=== PATIENT | female | born 1995 | race Caucasian/White ===

== ENCOUNTER 2018-02-07 23:02 | Emergency (ER) | payer BC ==
[2018-02-08 00:10] VITALS: RESP 18
--- NOTE | 2018-02-08 02:08 | ED ---
General Adult HPI - General Chief complaint: Psychiatric Symptoms Stated complaint: Petition Time Seen by Provider: 02/08/18 00:05 Source: patient, RN notes reviewed Mode of arrival: ambulatory Limitations: no limitations - History of Present Illness Initial comments: This is a 22-year-old female with past medical history significant for anxiety. Patient comes into the emergency department today under a court order. Parents petitioned her clinic records petitioned to be seen and evaluated. Parents were upset that the patient ran away from home however the patient states she just left because she was sick of being at home and being sheltered. Patient also states there's always arguing yelling and swearing at home from her father and she is having a difficult time dealing with that because of her anxiety. Patient states she does not want to go back home she is currently living at a gentleman sows who is 53 she states there is no relationship between the mother then she has able to have a room in the house. Patient states she does not use any alcohol or any drugs. Patient states she is not sexually active. Patient states she's never been allowed to date or even text boys. she just wants to get out and enjoy some of her life. - Related Data Allergies Allergy/AdvReac Type Severity Reaction Status Date / Time gluten Allergy Nausea & Verified 02/08/18 00:11 Vomiting grape Allergy Rash/Hives Verified 02/08/18 00:11 Milk Containing Products Allergy Nausea & Verified 02/08/18 00:11 [Dairy] Vomiting wheat Allergy Nausea & Verified 02/08/18 00:11 Vomiting Review of Systems ROS Statement: Those systems with pertinent positive or pertinent negative responses have been documented in the HPI. ROS Other: All systems not noted in ROS Statement are negative. Past Medical History Past Medical History: No Reported History History of Any Multi-Drug Resistant Organisms: None Reported Past Surgical History: No Surgical Hx Reported Past Psychological History: Anxiety Smoking Status: Never smoker Past Alcohol Use History: None Reported Past Drug Use History: None Reported General Exam - General Exam Comments Initial Comments: GENERAL: Patient is well-developed and well-nourished. Patient is nontoxic and well- hydrated and is in mild distress. ENT: Neck is soft and supple. No significant lymphadenopathy is noted. Oropharynx is clear. Moist mucous membranes. Neck has full range of motion without eliciting any pain. EYES: The sclera were anicteric and conjunctiva were pink and moist. Extraocular movements were intact and pupils were equal round and reactive to light. Eyelids were unremarkable. PULMONARY: Unlabored respirations. Good breath sounds bilaterally. No audible rales rhonchi or wheezing was noted. CARDIOVASCULAR: There is a regular rate and rhythm without any murmurs gallops or rubs. ABDOMEN: Soft and nontender with normal bowel sounds. No palpable organomegaly was noted. There is no palpable pulsatile mass. SKIN: Skin is clear with no lesions or rashes and otherwise unremarkable. NEUROLOGIC: Patient is alert and oriented x3. Cranial nerves II through XII are grossly intact. Motor and sensory are also intact. Normal speech, volume and content. Symmetrical smile. MUSCULOSKELETAL: Normal extremities with adequate strength and full range of motion. LYMPHATICS: No significant lymphadenopathy is noted PSYCHIATRIC: Normal psychiatric evaluation. Denies any suicidal homicidal ideations. Limitations: no limitations Course Vital Signs 02/08/18 00:06 Temperature 98.7 F Pulse Rate 92 Respiratory 18 Rate Blood Pressure 107/65 O2 Sat by Pulse 99 Oximetry Medical Decision Making - Medical Decision Making EPS contacted the psychiatrist and agree that the patient could be discharged home. - Lab Data Lab Results 02/08/18 Range/Units 02:15 Urine Opiates Screen Not Detected (NotDetected) Ur Oxycodone Screen Not Detected (NotDetected) Urine Methadone Screen Not Detected (NotDetected) Ur Propoxyphene Screen Not Detected (NotDetected) Ur Barbiturates Screen Not Detected (NotDetected) U Tricyclic Antidepress Not Detected (NotDetected) Ur Phencyclidine Scrn Not Detected (NotDetected) Ur Amphetamines Screen Not Detected (NotDetected) U Methamphetamines Scrn Not Detected (NotDetected) U Benzodiazepines Scrn Detected H (NotDetected) Urine Cocaine Screen Not Detected (NotDetected) U Marijuana (THC) Screen Not Detected (NotDetected) Disposition Clinical Impression: Evaluation by psychiatric service required Disposition: HOME SELF-CARE Condition: Good Instructions: Generalized Anxiety Disorder (ED) Is patient prescribed a controlled substance at d/c from ED?: No Referrals: Alfonso Marcelo MD [Primary Care Provider] - 1-2 days Time of Disposition: 05:03
[2018-02-08 03:22] LABS: Amphetamine Screen,Urine Not Detected (NotDetected); Barbiturate Screen,Urine Not Detected (NotDetected); Benzodiazepines Screen,Urine Detected (NotDetected); Cocaine Screen,Urine Not Detected (NotDetected); Methadone Screen, Urine Not Detected (NotDetected); Opiate Screen,Urine Not Detected (NotDetected); Oxycodone Screen, Urine Not Detected (NotDetected); Phencyclidine Screen,Urine Not Detected (NotDetected); Tricyclic Antidepressant,Urine Not Detected (NotDetected); Urn Cannabinoid Scrn Not Detected (NotDetected)
[2018-02-08 05:24] VITALS: BP 112/53; PULSE 98; TEMP 97.8
== END 2018-02-08 05:24 | disposition home or self-care (01) ==
LOC: EC 23:02
DX: Z04.6 Encounter for general psychiatric examination, requested by authority (principal); F41.9 Anxiety disorder, unspecified; Z91.018 Allergy to other foods; Z91.011 Allergy to milk products
CPT/HCPCS: 80306; 82075; 99283

== ENCOUNTER → 2018-06-17 | Outpatient (CLI) | payer BC ==
[2018-06-17 16:17] LABS: HGB 11.9 gm/dL (11.4-16.0); MCH 28.2 pg (25.0-35.0); MCHC 32.9 g/dL (31.0-37.0); MCV 85.7 fL (80.0-100.0); Mean Platelet Volume 8.4; Platelet Count 178 k/uL (150-450); RBC 4.21 m/uL (3.80-5.40); RDW 14.1 % (11.5-15.5); WBC 11.5 k/uL (3.8-10.6)
[2018-06-18 03:45] LABS: HIV 1 AB Non-Reactive (Non-Reactive); HIV AB P24 Non-Reactive (Non-Reactive); HIV P24 AG Non-Reactive (Non-Reactive)
[2018-06-20 04:40] LABS: Toxoplasma Antibody (IgG) <3.0 IU/mL (<7.2); Toxoplasma Antibody (IgM) <3.0 AU/mL (<8.0)
== END ==
LOC: LABWHC1 15:34
PROVIDERS: ATTEND Obstetrics & Gynecology
DX: O26.811 Pregnancy related exhaustion and fatigue, first trimester (principal); Z3A.00 Weeks of gestation of pregnancy not specified
CPT/HCPCS: 36415; 82565; 82947; 85027; 86762; 86777; 86778; 86780; 86850; 86900; 86901; 87340; 87390

== ENCOUNTER 2018-11-21 13:14 | Outpatient (CLI) | payer BC ==
[2018-11-21 14:36] VITALS: BP 123/60; PULSE 91; RESP 16; TEMP 98.5
--- NOTE | 2018-11-22 05:40 | P.MSEPDOC ---
Presenting Problems - Arrival Data Date of Arrival on Unit: 11/21/18 Time of Arrival on Unit: 13:30 Mode of Transport: Ambulatory - Complaint Comment: pt arrived c/o her stomach getting hard times once during the weekend pt denies any pain or cramping Medical History - Information : 1 Para: 0 Term: 0 : 0 Abortions: Spontaneous or Elective: 0 Number of Living Children: 0 - Gestational Age Gestational Age by ANEUDY (wks/days): 32 Weeks and 2 Days Review of Systems - Review of Systems Constitutional: No problems Breast: No problems ENT: No problems Cardiovascular: No problems Respiratory: No problems Gastrointestinal: No problems Genitourinary: No problems Musculoskeletal: No problems Neurological: No problems Skin: No problems Vital Signs - Temperature Temperature: 98.5 F Temperature Source: Oral - Pulse Right Brachial Pulse Rate: 91 Pulse Assessment Method: Automatic Cuff - Respirations Respiratory Rate: 16 Oxygen Delivery Method: Room Air - Blood Pressure Right Arm Blood Pressure: 123/60 Blood Pressure Mean: 81 Blood Pressure Source: Automatic Cuff Medical Screen Scoring (Pre) - Cervical Exam Dilation: 0 cm = 0 Membranes: Intact - Uterine Contractions Frequency: N/A Duration: N/A Intensity: N/A - Maternal Vital Signs Maternal Temperature: N/A Maternal Blood Pressure: N/A Signs of Preeclampsia: N/A Maternal Respirations: N/A - Pain Assessment Pain Scale Used: Numeric (1 - 10) Pain Intensity: 0 Pain Management Goal: 0 Pain Behavior: Vocalization - Maternal Trauma Maternal Trauma: N/A - Assessment Baseline FHR: 130 Heart Rate - NICHD Category: Category I (Normal) = 0 NST: Reactive Position: N/A Station: N/A - Total Score Total Score (Pre): 0 - Level of Risk Level of Risk: Low (0-5) Physician Notification (Post) - Physician Notified Physician Notified Date: 11/21/18 Physician Notified Time: 14:20 Spoke With: Dr. Gould New Order Received: Yes - Notification Comment Comment: reactive NST Cervix closed no contractions. May discharge to home undelivered Disposition - Disposition OB Disposition: Discharge to home Discharge Date: 11/21/18 Discharge Time: 14:20 I agree with the RN Medical Screening Exam: Yes Risk & Benefit of care provided described in d/c instruction: Yes Diagnosis: FALSE LABOR BEFORE 37 COMPLETED WEEKS OF GEST, THIRD TRI
== END 2018-11-21 14:20 | disposition home or self-care (01) ==
LOC: FBPOP 13:14
PROVIDERS: ATTEND Obstetrics & Gynecology
DX: O47.03 False labor before 37 completed weeks of gestation, third trimester (principal); Z3A.32 32 weeks gestation of pregnancy
CPT/HCPCS: 59025; 99213

== ENCOUNTER 2019-01-13 16:38 | Inpatient (IN) | payer BC ==
[2019-01-13] MEDS ORDERED: DINOPROSTONE 10 MG INSERT.ER VAGINAL ONE (16:40)
[2019-01-13 17:01] VITALS: BMI 29.7
[2019-01-13 17:18] LABS: Anisocytosis Slight; Basophils % (A) 0 %; Eosinophils # (A) 0.1 k/uL (0-0.7); Eosinophils % (A) 1 %; HCT 31.3 % (34.0-46.0); HGB 9.9 gm/dL (11.4-16.0); Hypochromasia Moderate; Lymphocytes # (A) 1.6 k/uL (1.0-4.8); Lymphocytes % (A) 12 %; MCH 23.2 pg (25.0-35.0); MCHC 31.5 g/dL (31.0-37.0); MCV 73.7 fL (80.0-100.0); Mean Platelet Volume 8.8; Microcytosis Slight; Monocytes % (A) 8 %; Neutrophils # (A) 10.1 k/uL (1.3-7.7); Neutrophils % (A) 77 %; Platelet Count 179 k/uL (150-450); Poikilocytosis Slight; RBC 4.25 m/uL (3.80-5.40); RDW 16.1 % (11.5-15.5); WBC 13.1 k/uL (3.8-10.6)
[2019-01-13 17:25] LABS: Appearance,Urine Clear (Clear); Bilirubin,Urine Negative (Negative); Blood,Urine Negative (Negative); Color,Urine Yellow; Glucose,Urine (UA) Negative (Negative); Ketones,Urine Negative (Negative); Leukocyte Esterase,Urine Negative (Negative); Nitrite,Urine Negative (Negative); Protein,Urine Negative (Negative); Urobilinogen,Urine <2.0 mg/dL (<2.0)
[2019-01-13 17:26] LABS: INR 0.8 (<1.2); Partial Thromboplastin Time 22.5 sec (22.0-30.0); Prothrombin Time 9.3 sec (9.0-12.0)
[2019-01-13 17:27] LABS: Albumin 3.5 g/dL (3.5-5.0); Bilirubin,Unconjugated 0.3 mg/dL (0.0-1.1); Total Bilirubin 0.2 mg/dL (0.2-1.3); Total Protein 6.4 g/dL (6.3-8.2); Uric Acid 3.2 mg/dL (3.7-7.4)
--- NOTE | 2019-01-13 17:50 | P.HPOB ---
History of Present Illness H&P Date: 01/13/19 Chief Complaint: Gestational hypertension This patient is a pleasant 23-year-old 1 para 0 female estimated date of confinement 01/14/2019 estimated gestational age 39-6/7 weeks gestation who presented my office today for routine visit was found to have elevated blood pressure 138/84 and 142/92. Patient did complain of a headache last evening but otherwise is feeling okay. Patient's cervix was not dilated. Patient's was complicated by a choroid plexus cyst for which she was sent to maternal- medicine and evaluation there was negative. They initially thought they saw 2 cm placental cyst however this repeat imaging was not found to be the case. Patient did see cardiology during the due to palpitations and was on a Holter monitor and had off heart echo done but these were all normal as well. Patient is now presenting for two-stage induction of labor for gestational hypertension. Review of Systems Ears, nose, mouth and throat: Reports headache Gastrointestinal: Reports heartburn Genitourinary: Reports Menstruation: Reports amenorrhea Past Medical History Past Medical History: No Reported History Additional Past Medical History / Comment(s): Palpitations with negative evaluation. History of Any Multi-Drug Resistant Organisms: None Reported Past Surgical History: No Surgical Hx Reported Past Anesthesia/Blood Transfusion Reactions: No Reported Reaction Past Psychological History: Anxiety Smoking Status: Never smoker Past Alcohol Use History: None Reported Past Drug Use History: None Reported - Past Family History Mother Family Medical History: No Reported History Medications and Allergies Home Medications Medication Instructions Recorded Confirmed Type Pnv,Calcium 72/Iron/Folic Acid 1 each PO DAILY 01/13/19 01/13/19 History [ Plus Tablet] Allergies Allergy/AdvReac Type Severity Reaction Status Date / Time grape Allergy Rash/Hives Verified 01/13/19 16:51 Exam Vital Signs Temp Pulse Resp Pulse Ox 01/13/19 16:49 96.8 F L 110 H 16 98 Intake and Output 01/13/19 01/13/19 01/13/19 06:59 14:59 22:59 Other: Weight 99.337 kg - OBG Physical Exam Abdomen: bowel sounds normal, no diffuse tenderness, no bruit present, no guarding noted, no hepatomegaly, no splenomegaly, no mass Vulva: both: normal Vagina: normal moisture, no discharge Cervix: no lesion (Cervix is closed and thick), no discharge Uterus: enlarged (Fundal height is 39 cm) Results blood work shows she is O positive, rubella nonimmune, RPR nonreactive, hepatitis B negative, HIV nonreactive, Glucola was 111, ultrasounds including level III ultrasound were normal. cardiac echo was normal. Result Diagrams: 01/13/19 17:00 Abnormal Lab Results - Last 24 Hours (Table) 01/13/19 01/13/19 Range/Units 17:00 17:00 WBC 13.1 H (3.8-10.6) k/uL Hgb 9.9 L (11.4-16.0) gm/dL Hct 31.3 L (34.0-46.0) % MCV 73.7 L (80.0-100.0) fL MCH 23.2 L (25.0-35.0) pg RDW 16.1 H (11.5-15.5) % Neutrophils # 10.1 H (1.3-7.7) k/uL Uric Acid 3.2 L (3.7-7.4) mg/dL Alkaline Phosphatase 207 H (38-126) U/L Assessment and Plan Assessment: This is a pleasant 23-year-old 1 para 0 female 39-6/7 weeks gestation admitted to labor and delivery for evaluation of gestational hypertension and preeclampsia labs are normal and blood pressures are improved here as compared to the office. Plan at this time is to proceed with two-stage induction of labor and anticipate vaginal delivery. (1) 40 weeks gestation of Current Visit: Yes Status: Acute Code(s): Z3A.40 - 40 WEEKS GESTATION OF SNOMED Code(s): 89988689 (2) Gestational hypertension Current Visit: Yes Status: Acute Code(s): O13.9 - GESTATIONAL HTN W/O SIGNIFICANT PROTEINURIA, UNSP TRIMESTER SNOMED Code(s): 688799510
[2019-01-13] MEDS: LACTATED RINGERS 1,000 ML IV SCH ×2 (19:20→20:50)
[2019-01-13] MEDS ORDERED: ACETAMINOPHEN TAB 500 MG TAB PO STA (19:37)
[2019-01-13] MEDS: BUTORPHANOL 1 MG/ML 1 ML VIAL IV PRN (23:45)
[2019-01-14] MEDS: BUTORPHANOL 1 MG/ML 1 ML VIAL IV PRN (02:16)
[2019-01-14] MEDS ORDERED: CARBOPROST TROMETHAMINE 250 MCG/ML 1 ML AMP IM PRN (05:05)
[2019-01-14] MEDS ORDERED: METHYLERGONOVINE 0.2 MG/ML 1 ML AMP IM PRN (05:05)
[2019-01-14] MEDS ORDERED: OXYTOCIN 30 UNITS/500 ML NS 30 UNIT in SALINE 1 500ML.BAG IV SCH (05:05)
[2019-01-14] MEDS ORDERED: OXYTOCIN 10 UNIT/ML 1 ML VIAL IM PRN (05:05)
[2019-01-14] MEDS ORDERED: LIDOCAINE 0.5% (PF) 5 MG/ML (50 ML SDV) SQ PRN (05:05)
[2019-01-14] MEDS ORDERED: TERBUTALINE 1 MG/ML VIAL SQ PRN (05:05)
[2019-01-14] MEDS: LACTATED RINGERS 1,000 ML IV SCH ×5 (05:53→20:49)
[2019-01-14] MEDS ORDERED: ROPIVACAINE 5MG/ML 20ML VIAL ONE (09:05)
[2019-01-14] MEDS ORDERED: SODIUM CHLORIDE 0.9% 100 ML BAG ONE (09:05)
[2019-01-14] MEDS ORDERED: fentaNYL (PF) 50 MCG/ML 5 ML AMP ONE (09:05)
[2019-01-14] MEDS ORDERED: ZOLPIDEM 5 MG TAB PO PRN (17:39)
[2019-01-14] MEDS ORDERED: diphenhydrAMINE 25 MG CAP PO PRN (17:39)
[2019-01-14] MEDS ORDERED: ACETAMINOPHEN TAB 325 MG TAB PO PRN (17:39)
[2019-01-14] MEDS ORDERED: HYDROCORTISONE 2.5% RECTAL CREAM 30 GM TUBE RECTAL PRN (17:39)
[2019-01-14] MEDS ORDERED: SIMETHICONE 80 MG CHEWABLE PO PRN (17:39)
[2019-01-14] MEDS ORDERED: diphenhydrAMINE 50 MG/ML 1 ML VIAL IVP PRN (17:39)
[2019-01-14] MEDS ORDERED: BISACODYL 10 MG SUPP RECTAL PRN (17:39)
[2019-01-14] MEDS ORDERED: BENZOCAINE/MENTHOL SPRAY 1 GM/SPRAY AEROSOL TOPICAL PRN (17:39)
[2019-01-14] MEDS ORDERED: LANOLIN CREAM 5 GM TUBE TOPICAL PRN (17:39)
[2019-01-14] MEDS ORDERED: WITCH HAZEL 1 EACH MED..PAD TOPICAL PRN (17:39)
--- NOTE | 2019-01-14 17:44 | P.PROBDLV ---
Vaginal Delivery Note - . Vaginal Delivery Note: Normal vaginal delivery viable male infant Apgars 7,8 at 1714 hrs. Please see dictated H&P for intimate details of this patient's admission. Brief summary this pleasant 23-year-old 1 para 0 female 39-6/7 weeks gestation admitted yesterday for induction secondary to gestational hypertension. Patient has Cervidil placed and this morning was 3-4 cm dilated. Patient is artificial rupture membranes for clear fluid. Labor is induced with Pitocin per protocol. Patient's labor progresses and she does get an epidural for pain control. Patient gets to complete pushes for approximately 15 minutes. Posterior perineum was supported we have controlled delivery of the 's head over the perineum. Mouth and nares are bulb suctioned. There is a nuchal cord which is easily reduced. With gentle downward traction we then have deliver the anterior and posterior shoulder and rest this infant's body. This is a vigorous viable male Apgars are 7 and 9 delivery time is 1714 hrs. After delivery of the 's late on the mother's abdomen. The cord is done pulsating is doubly clamped and then cut. The placenta is then spontaneously delivered intact. Inspection of perineum shows a second-degree laceration is repaired with 3-0 Vicryl usual fashion. Excellent reapproximation is noted. All counts correct 3. There are no complications. Infant and mother stable delivery room.
[2019-01-14] MEDS ORDERED: OXYTOCIN 20 UNITS/1000 ML NS 1,000 ML IV SCH (17:45)
[2019-01-14] MEDS: IBUPROFEN 600 MG TAB PO PRN (17:58)
[2019-01-14] MEDS: SENNOSIDES-DOCUSATE SODIUM 1 EACH TAB PO SCH (20:49)
[2019-01-14] MEDS ORDERED: MEASLES-MUMPS-RUBELLA VACC/PF 12,500 UNIT/0.5 ML VIAL SQ ONE (22:13)
--- NOTE | 2019-01-15 07:16 | P.PNOBGVD ---
Subjective - Subjective Patient reports: Reports appetite normal, Reports voiding normally, Reports pain well controlled, Reports ambulating normally : doing well Objective - Latest Vital Signs Latest vital signs: Vital Signs Temp Pulse Resp BP Pulse Ox 01/15/19 04:00 98.7 F 92 14 113/48 97 01/14/19 23:35 99.0 F 99 16 120/61 96 01/14/19 19:30 98.2 F 80 16 108/64 01/14/19 19:00 86 16 124/69 01/14/19 18:30 90 16 117/66 01/14/19 18:15 78 16 122/68 01/14/19 18:00 82 16 122/72 01/14/19 17:45 85 16 122/60 01/14/19 17:30 97.5 F L 100 17 125/61 Intake and Output 01/14/19 01/15/19 01/15/19 22:59 06:59 14:59 Output Total 150 Balance -150 Output: Estimated Blood Loss 150 Other: # Voids 2 - Exam Lungs: bilateral: normal Chest: Normal S1, Normal S2 Extremities: Present: normal Abdomen: Present: normal appearance, soft Uterus: Present: normal, firm Assessment and Plan Assessment: day #1. Patient is resting without complaints and would like to go home later today. Uterus is firm nontender and she is having normal lochia. Patient's felt be stable for discharge home follow up with me in 6 weeks. (1) 40 weeks gestation of Current Visit: Yes Status: Acute Code(s): Z3A.40 - 40 WEEKS GESTATION OF SNOMED Code(s): 07177212 (2) Gestational hypertension Current Visit: Yes Status: Acute Code(s): O13.9 - GESTATIONAL HTN W/O SIGNIFICANT PROTEINURIA, UNSP TRIMESTER SNOMED Code(s): 841909446
--- NOTE | 2019-01-15 07:20 | P.DS ---
Providers Date of admission: 01/13/19 16:38 Expected date of discharge: 01/15/19 Attending physician: David Gould Primary care physician: Trent Gonzalez - Discharge Diagnosis(es) (1) 40 weeks gestation of Current Visit: Yes Status: Acute (2) Gestational hypertension Current Visit: Yes Status: Acute Hospital Course: Please see dictated H&P for intimate details of this patient's admission. Brief summary is a pleasant 23-year-old 1 para 0 female 40 weeks gestation admitted to labor and delivery for two-stage induction of labor secondary to gestational hypertension. Patient was on have a vaginal delivery viable male . Please see dictated delivery note. day #1 patient without complaints wishes to go home. Patient's felt be stable for discharge home follow up with me in 6 weeks. Procedures: Two-stage induction of labor and normal vaginal delivery Patient Condition at Discharge: Good Plan - Discharge Summary Discharge Rx Participant: No New Discharge Prescriptions: New Ibuprofen [Motrin] 600 mg PO Q6HR PRN #40 tab PRN Reason: Mild Pain Or Fever >= 100.5 No Action Pnv,Calcium 72/Iron/Folic Acid [ Plus Tablet] 1 each PO DAILY Discharge Medication List Pnv,Calcium 72/Iron/Folic Acid [ Plus Tablet] 1 each PO DAILY 01/13/19 [History] Ibuprofen [Motrin] 600 mg PO Q6HR PRN #40 tab 01/15/19 [Rx] Follow up Appointment(s)/Referral(s): David Gould MD [STAFF PHYSICIAN] - 6 Weeks (Please call the office on Wednesday to schedule a check in approximately 6 weeks) Patient Instructions/Handouts: Vaginal Delivery (DC) Activity/Diet/Wound Care/Special Instructions: No intercourse or anything per vagina for 6 weeks. Please call if any fever, chills, excessive vaginal bleeding, and/or abdominal pain. Discharge Disposition: HOME SELF-CARE
[2019-01-15] MEDS: IBUPROFEN 600 MG TAB PO PRN ×2 (07:28→19:36)
[2019-01-15] MEDS: SENNOSIDES-DOCUSATE SODIUM 1 EACH TAB PO SCH ×2 (07:29→19:36)
[2019-01-15 08:29] VITALS: RESP 16
--- NOTE | 2019-01-16 06:40 | P.PNOBGVD ---
Subjective - Subjective Patient reports: Reports appetite normal, Reports voiding normally, Reports pain well controlled, Reports ambulating normally : doing well Objective - Latest Vital Signs Latest vital signs: Vital Signs Temp Pulse Resp BP 01/16/19 00:00 98.2 F 84 16 104/51 01/15/19 16:00 98 F 109 H 16 138/79 01/15/19 08:00 98.3 F 99 16 133/79 Intake and Output 01/15/19 01/15/19 01/16/19 14:59 22:59 06:59 Intake Total 100 Balance 100 Intake: Oral 100 Other: Voiding Method Toilet # Voids 1 1 1 - Exam Lungs: bilateral: normal Chest: Normal S1, Normal S2 Extremities: Present: normal Abdomen: Present: normal appearance, soft Uterus: Present: normal, firm Assessment and Plan Assessment: Patient's baby developed a low-grade temperature and therefore she decided to stay intact today. Patient herself is afebrile. Uterus is firm nontender and she is having normal lochia. Continue routine care and discharge home later today. (1) 40 weeks gestation of Current Visit: Yes Status: Acute Code(s): Z3A.40 - 40 WEEKS GESTATION OF SNOMED Code(s): 84921029 (2) Gestational hypertension Current Visit: Yes Status: Acute Code(s): O13.9 - GESTATIONAL HTN W/O SIGNIFICANT PROTEINURIA, UNSP TRIMESTER SNOMED Code(s): 000958485
[2019-01-16] MEDS: IBUPROFEN 600 MG TAB PO PRN (07:27)
[2019-01-16] MEDS: SENNOSIDES-DOCUSATE SODIUM 1 EACH TAB PO SCH (07:27)
[2019-01-16 15:36] VITALS: BP 119/68; PULSE 106; TEMP 98
== END 2019-01-16 16:35 | disposition home or self-care (01) | DRG 807 ==
LOC: 4FBP 16:38
PROVIDERS: ADMIT Obstetrics & Gynecology; ATTEND Obstetrics & Gynecology
PROC: 10E0XZZ Delivery of Products of Conception, External Approach (ICD-10-PCS; principal; 2019-01-14)
PROC: 0KQM0ZZ Repair Perineum Muscle, Open Approach (ICD-10-PCS; 2019-01-14)
PROC: 10907ZC Drainage of Amniotic Fluid, Therapeutic from Products of Conception, Via Natural or Artificial Opening (ICD-10-PCS; 2019-01-14)
PROC: 3E0P7VZ Introduction of Hormone into Female Reproductive, Via Natural or Artificial Opening (ICD-10-PCS; 2019-01-14)
PROC: 3E033VJ Introduction of Other Hormone into Peripheral Vein, Percutaneous Approach (ICD-10-PCS; 2019-01-14)
PROC: 00HU33Z Insertion of Infusion Device into Spinal Canal, Percutaneous Approach (ICD-10-PCS; 2019-01-14)
PROC: 3E0R3BZ Introduction of Anesthetic Agent into Spinal Canal, Percutaneous Approach (ICD-10-PCS; 2019-01-14)
DX: O13.4 Gestational [pregnancy-induced] hypertension without significant proteinuria, complicating childbirth (principal); Z37.0 Single live birth; O99.344 Other mental disorders complicating childbirth; O69.81X0 Labor and delivery complicated by cord around neck, without compression, not applicable or unspecified; F41.9 Anxiety disorder, unspecified; O70.1 Second degree perineal laceration during delivery; O99.89 Other specified diseases and conditions complicating pregnancy, childbirth and the puerperium; Z3A.40 40 weeks gestation of pregnancy
CPT/HCPCS: 80076; 81003; 83615; 84550; 85025; 85610; 85730; 86850; 86900; 86901; 90707

== ENCOUNTER 2020-09-16 09:13 | Outpatient (CLI) | payer BC ==
[2020-09-16 10:44] VITALS: BP 119/62; PULSE 85; RESP 16; TEMP 97.3
--- NOTE | 2020-09-17 06:23 | P.MSEPDOC ---
Presenting Problems - Arrival Data Date of Arrival on Unit: 09/16/20 Time of Arrival on Unit: 09:30 Mode of Transport: Ambulatory - Complaint OB-Reason for Admission/Chief Complaint: Decreased Movement Comment: 28 weeks . decreased movement since last night Medical History - Information : 2 Para: 1 Term: 1 : 0 Abortions: Spontaneous or Elective: 0 Number of Living Children: 1 - Gestational Age Gestational Age by ANEUDY (wks/days): 28 Weeks and 3 Days Review of Systems - Review of Systems Constitutional: No problems Breast: No problems ENT: No problems Cardiovascular: No problems Respiratory: No problems Gastrointestinal: No problems Genitourinary: No problems Musculoskeletal: No problems Neurological: No problems Skin: No problems Vital Signs - Temperature Temperature: 97.3 F Temperature Source: Oral - Pulse Right Apical Pulse Rate: 85 Pulse Assessment Method: Automatic Cuff - Respirations Respiratory Rate: 16 Oxygen Delivery Method: Room Air O2 Sat by Pulse Oximetry: 99 - Blood Pressure Right Arm Blood Pressure: 119/62 Blood Pressure Mean: 81 Blood Pressure Source: Automatic Cuff Medical Screen Scoring (Pre) - Cervical Exam Dilation: Exam Deferred Effacement: Exam Deferred Membranes: Intact - Uterine Contractions Frequency: N/A Duration: N/A Intensity: N/A - Maternal Vital Signs Maternal Temperature: N/A Signs of Preeclampsia: N/A Maternal Respirations: N/A - Maternal Trauma Maternal Trauma: N/A - Assessment - Baby A Baseline FHR: 130 Heart Rate - NICHD Category: Category I (Normal) = 0 Position: N/A Station: N/A - Total Score - Baby A Total Score - Baby A: 0 - Total Score - Baby B Total Score - Baby B: 0 - Total Score - Baby C Total Score - Baby C: 0 - Level of Risk - Baby A Level of Risk - Baby A: Low (0-5) - Level of Risk - Baby B Level of Risk - Baby B: Low (0-5) - Level of Risk - Baby C Level of Risk - Baby C: Low (0-5) Physician Notification (Pre) - Physician Notified Physician Notified Date: 09/16/20 Physician Notified Time: 09:45 New Order Received: Yes (may discharge home if active nst and feeling baby) - Notification Comment Comment: reactive nst for 28 weeks. also feeling baby move. so at side. reassured with hearing fht's Disposition - Disposition OB Disposition: Discharge to home Discharge Date: 09/16/20 Discharge Time: 10:05 I agree with the RN Medical Screening Exam: Yes Case reviewed; plan agreed upon as documented in EMR&OBIX.: Yes Diagnosis: DECREASED MOVEMENTS, SECOND TRIMESTER, FETUS 1
== END 2020-09-16 10:05 | disposition home or self-care (01) ==
LOC: FBPOP 09:13
PROVIDERS: ATTEND Obstetrics & Gynecology
DX: O36.8121 Decreased fetal movements, second trimester, fetus 1 (principal); Z3A.28 28 weeks gestation of pregnancy
CPT/HCPCS: 59025; 99213

== ENCOUNTER 2020-10-07 13:40 | Outpatient (CLI) | payer BC, OTHER ==
[2020-10-07 14:49] VITALS: BP 126/71; PULSE 96; RESP 18; TEMP 97.5
--- NOTE | 2020-10-08 06:26 | P.MSEPDOC ---
Presenting Problems - Arrival Data Date of Arrival on Unit: 10/07/20 Time of Arrival on Unit: 13:40 Mode of Transport: Ambulatory - Complaint OB-Reason for Admission/Chief Complaint: Headache Comment: headache and some nausea yesterday, none at present. Medical History - Information : 2 Para: 1 Term: 1 : 0 Abortions: Spontaneous or Elective: 0 Number of Living Children: 1 - Gestational Age Gestational Age by ANEUDY (wks/days): 31 Weeks and 3 Days Review of Systems - Review of Systems Constitutional: No problems Breast: No problems ENT: No problems Cardiovascular: No problems Respiratory: No problems Gastrointestinal: No problems Genitourinary: No problems Musculoskeletal: No problems Neurological: No problems Skin: No problems Comment: headache/nausea yesterday, none at present. Vital Signs - Temperature Temperature: 97.5 F Temperature Source: Temporal Artery Scan - Pulse Right Pulse Oximetery Pulse Rate: 96 Pulse Assessment Method: Pulse Oximetry - Respirations Respiratory Rate: 18 Oxygen Delivery Method: Room Air O2 Sat by Pulse Oximetry: 98 - Blood Pressure Right Arm Blood Pressure: 126/71 Blood Pressure Mean: 89 Blood Pressure Source: Automatic Cuff Medical Screen Scoring (Pre) - Cervical Exam Dilation: Exam Deferred Effacement: Exam Deferred - Uterine Contractions Frequency: N/A Duration: N/A Intensity: N/A - Maternal Vital Signs Maternal Temperature: N/A Maternal Blood Pressure: N/A Signs of Preeclampsia: N/A Maternal Respirations: N/A - Maternal Trauma Maternal Trauma: N/A - Assessment - Baby A Baseline FHR: 130 Heart Rate - NICHD Category: Category I (Normal) = 0 NST: Reactive Position: N/A Station: N/A - Total Score - Baby A Total Score - Baby A: 0 - Total Score - Baby B Total Score - Baby B: 0 - Total Score - Baby C Total Score - Baby C: 0 - Level of Risk - Baby A Level of Risk - Baby A: Low (0-5) - Level of Risk - Baby B Level of Risk - Baby B: Low (0-5) - Level of Risk - Baby C Level of Risk - Baby C: Low (0-5) Physician Notification (Pre) - Physician Notified Physician Notified Date: 10/07/20 Physician Notified Time: 14:28 New Order Received: Yes Disposition - Disposition OB Disposition: Discharge to home Discharge Date: 10/07/20 Discharge Time: 14:40 I agree with the RN Medical Screening Exam: Yes Case reviewed; plan agreed upon as documented in EMR&OBIX.: Yes Diagnosis: HEADACHE, UNSPECIFIED (Pt presents with concern of CHAIDEZ and possible pre-eclampsia. CHAIDEZ is now gone. BP normal. No evidence of HTN/pre-eclampsia. Will f/u as scheduled and to return if continued concerns. No evidence of maternal/ compromise.)
== END 2020-10-07 14:40 | disposition home or self-care (01) ==
LOC: FBPOP 13:40
PROVIDERS: ATTEND Obstetrics & Gynecology
DX: O26.893 Other specified pregnancy related conditions, third trimester (principal); R51.9 Headache, unspecified; Z3A.31 31 weeks gestation of pregnancy
CPT/HCPCS: 59025; 99213

== ENCOUNTER 2020-11-28 05:36 | Inpatient (IN) | payer BC, OTHER ==
--- NOTE | 2020-11-27 08:02 | P.HPOB ---
History of Present Illness H&P Date: 11/27/20 Chief Complaint: Requested induction of labor This patient is a pleasant 24-year-old 2 para 1 female estimated date of confinement 12/05/2020 estimated gestational age 39-0/7 weeks who presents to labor and delivery for requested induction of labor due to maternal discomfort. Patient's care has been uncomplicated except for some mild anemia. She is now requesting induction. Review of Systems Genitourinary: Reports Menstruation: Reports amenorrhea Past Medical History Past Medical History: No Reported History Additional Past Medical History / Comment(s): Palpitations with negative evaluation. Previous term vaginal delivery History of Any Multi-Drug Resistant Organisms: None Reported Past Surgical History: No Surgical Hx Reported Past Anesthesia/Blood Transfusion Reactions: No Reported Reaction Smoking Status: Never smoker Past Alcohol Use History: None Reported Past Drug Use History: None Reported - Past Family History Mother Family Medical History: No Reported History Medications and Allergies Home Medications Medication Instructions Recorded Confirmed Type Pnv,Calcium 72/Iron/Folic Acid 1 each PO DAILY 01/13/19 10/07/20 History [ Plus Tablet] Allergies Allergy/AdvReac Type Severity Reaction Status Date / Time grape Allergy Rash/Hives Verified 10/07/20 14:36 Exam - OBG Physical Exam Abdomen: bowel sounds normal, no diffuse tenderness, no bruit present, no guarding noted, no hepatomegaly, no splenomegaly, no mass Vulva: both: normal Vagina: normal moisture, no discharge Cervix: no lesion (Cervix in the office is 2 cm soft -2 station.), no discharge Uterus: enlarged (Fundal height 38 cm) Results blood work shows she is O positive, rubella immune, RPR nonreactive, hepatitis B negative, Glucola was normal, group B strep was negative, ultrasounds have shown normal growth and anatomy. Assessment and Plan Assessment: This is a pleasant 24-year-old 2 para 1 female 39-0/7 weeks gestation who is admitted to labor and delivery for requested induction of labor. Plan is induction of labor and anticipate vaginal delivery. (1) 39 weeks gestation of Status: Acute Code(s): Z3A.39 - 39 WEEKS GESTATION OF SNOMED Code(s): 78939026 (2) Elective induction of labor planned Status: Acute Code(s): ZEF8349 - SNOMED Code(s): 674550820
[2020-11-28] MEDS ORDERED: LIDOCAINE 0.5% (PF) 5 MG/ML (50 ML SDV) SQ PRN (05:58)
[2020-11-28] MEDS ORDERED: METHYLERGONOVINE 0.2 MG/ML 1 ML AMP IM PRN (05:58)
[2020-11-28] MEDS ORDERED: CARBOPROST TROMETHAMINE 250 MCG/ML 1 ML AMP IM PRN (05:58)
[2020-11-28] MEDS ORDERED: TERBUTALINE 1 MG/ML VIAL SQ PRN (05:58)
[2020-11-28] MEDS ORDERED: OXYTOCIN 10 UNIT/ML 1 ML VIAL IM PRN (05:58)
[2020-11-28] MEDS ORDERED: OXYTOCIN 30 UNITS/500 ML NS 30 UNIT in SALINE 1 500ML.BAG IV SCH ×2 (05:58→17:44)
[2020-11-28] MEDS: LACTATED RINGERS 1,000 ML IV SCH ×3 (06:04→16:21)
[2020-11-28 06:20] LABS: Anisocytosis Slight; Basophils % (A) 0 %; Eosinophils # (A) 0.1 k/uL (0-0.7); Eosinophils % (A) 1 %; HCT 30.5 % (34.0-46.0); HGB 10.4 gm/dL (11.4-16.0); Hypochromasia Slight; Lymphocytes # (A) 1.5 k/uL (1.0-4.8); Lymphocytes % (A) 16 %; MCH 24.5 pg (25.0-35.0); MCHC 33.9 g/dL (31.0-37.0); MCV 72.2 fL (80.0-100.0); Mean Platelet Volume 9.4; Microcytosis Moderate; Monocytes # (A) 0.6 k/uL (0-1.0); Monocytes % (A) 7 %; Neutrophils % (A) 75 %; Platelet Count 138 k/uL (150-450); Poikilocytosis Slight; RBC 4.23 m/uL (3.80-5.40); RDW 16.5 % (11.5-15.5); WBC 9.4 k/uL (3.8-10.6)
[2020-11-28] MEDS ORDERED: fentaNYL (PF) 50 MCG/ML 5 ML AMP ONE (11:38)
[2020-11-28] MEDS ORDERED: ROPIVACAINE 5MG/ML 20ML VIAL ONE (11:38)
[2020-11-28] MEDS ORDERED: SODIUM CHLORIDE 0.9% 100 ML BAG ONE (11:38)
[2020-11-28] MEDS ORDERED: diphenhydrAMINE 50 MG/ML 1 ML VIAL IVP PRN (17:44)
[2020-11-28] MEDS ORDERED: HYDROCORTISONE 2.5% RECTAL CREAM 30 GM TUBE RECTAL PRN (17:44)
[2020-11-28] MEDS ORDERED: bisacodyL 10 MG SUPP RECTAL PRN (17:44)
[2020-11-28] MEDS ORDERED: diphenhydrAMINE 25 MG CAP PO PRN (17:44)
[2020-11-28] MEDS ORDERED: BENZOCAINE/MENTHOL SPRAY 1 GM/SPRAY AEROSOL TOPICAL PRN (17:44)
[2020-11-28] MEDS ORDERED: LANOLIN CREAM 5 GM TUBE TOPICAL PRN (17:44)
[2020-11-28] MEDS ORDERED: SIMETHICONE 80 MG CHEWABLE PO PRN (17:44)
[2020-11-28] MEDS ORDERED: ZOLPIDEM 5 MG TAB PO PRN (17:44)
[2020-11-28] MEDS ORDERED: ACETAMINOPHEN TAB 325 MG TAB PO PRN (17:44)
--- NOTE | 2020-11-28 17:47 | P.PROBDLV ---
Vaginal Delivery Note - . Vaginal Delivery Note: Normal vaginal delivery viable female Apgars 7 and 9 delivery time is 1710 hrs. Please see dictated H&P for intimate details of this patient's admission. In brief summary this is a pleasant 24-year-old 2 para 1 female 39 0/7 weeks gestation admitted to labor and delivery for requested induction of labor. Patient is admitted she is 2 cm dilated has artificial rupture membranes for clear fluid. Labor is induced with Pitocin per protocol. Labor progresses and she does get an epidural at 3 cm dilated. Patient continues to progress normally gets to complete. Patient pushes the head to the perineum the posterior perineum is supported. We have controlled delivery of the 's head over the perineum. Mouth and nares are bulb suctioned. There is a double nuchal cord which is doubly reduced. Patient continues to push uncontrollably a nd deliver the anterior and posterior shoulder and rest this 's body. This is a vigorous viable female infant Apgars are 7 and 9 delivery time is 1710 hrs. After delivery of the the umbilical cords allowed to quit pulsating is then doubly clamped and cut. It appears to be trivascular. The infant is late mother's abdomen. The placenta spontaneously delivered intact. Estimated blood loss is 200 mL. Inspection of perineum shows second-degree laceration is repaired with 3-0 Vicryl usual fashion excellent reapproximation is noted. Infant and mother are stable delivery room. There are no complications. All counts correct 3.
[2020-11-28] MEDS: IBUPROFEN 600 MG TAB PO PRN (18:13)
[2020-11-28] MEDS: SENNOSIDES-DOCUSATE SODIUM 1 EACH TAB PO SCH (18:14)
[2020-11-29] MEDS: IBUPROFEN 600 MG TAB PO PRN ×2 (04:46→13:25)
--- NOTE | 2020-11-29 06:39 | P.PNOBGVD ---
Subjective - Subjective Patient reports: Reports appetite normal, Reports voiding normally, Reports pain well controlled, Reports ambulating normally : doing well Objective - Latest Vital Signs Latest vital signs: Vital Signs Temp Pulse Resp BP 11/29/20 04:00 98.1 F 82 16 116/72 11/29/20 00:00 98.4 F 84 16 119/74 11/28/20 19:30 98.1 F 69 18 126/80 11/28/20 19:00 68 16 125/75 11/28/20 18:30 70 16 124/69 11/28/20 18:15 85 16 136/71 11/28/20 18:00 73 16 122/62 11/28/20 17:45 80 16 126/67 11/28/20 17:30 97.4 F L 77 16 121/58 Intake and Output 11/28/20 11/28/20 11/29/20 14:59 22:59 06:59 Output Total 300 150 Balance -300 -150 Output: Urine 300 Estimated Blood Loss 150 Other: # Voids 2 - Exam Lungs: bilateral: normal Chest: Normal S1, Normal S2 Extremities: Present: normal Abdomen: Present: normal appearance, soft Uterus: Present: normal, firm Assessment and Plan Assessment: Post day #1. Patient is resting without complaints and wishes to go home. Vital signs are stable and she is afebrile. Uterus is firm nontender and she is having normal lochia. My impression is a normal course. Anus to continue routine care discharge home later today. (1) 39 weeks gestation of Current Visit: No Status: Acute Code(s): Z3A.39 - 39 WEEKS GESTATION OF SNOMED Code(s): 74734756 (2) Elective induction of labor planned Current Visit: No Status: Acute Code(s): ODM6956 - SNOMED Code(s): 839633218
--- NOTE | 2020-11-29 06:44 | P.DS ---
Providers Date of admission: 11/28/20 05:36 Expected date of discharge: 11/29/20 Attending physician: David Gould Primary care physician: Trent Gonzalez - Discharge Diagnosis(es) (1) 39 weeks gestation of Current Visit: No Status: Acute (2) Elective induction of labor planned Current Visit: No Status: Acute Hospital Course: Please see dictated H&P for intimate details of this patient's admission. Brief summary this is a pleasant 24-year-old 2 para 1 female 39 weeks gestation admitted to labor and delivery for induction of labor. She is admitted she is uncomplicated induction of labor goes on have a vaginal delivery viable female infant. Please see dictated delivery note. day #1 patient without complaints she wishes to go home. She is felt to be stable for discharge home follow up with me in 6 weeks. Procedures: Induction of labor and normal vaginal delivery Patient Condition at Discharge: Good Plan - Discharge Summary New Discharge Prescriptions: New Ibuprofen [Motrin] 600 mg PO Q6H PRN #30 tab PRN Reason: Pain No Action Pnv,Calcium 72/Iron/Folic Acid [ Plus Tablet] 1 each PO DAILY Discharge Medication List Pnv,Calcium 72/Iron/Folic Acid [ Plus Tablet] 1 each PO DAILY 01/13/19 [History] Ibuprofen [Motrin] 600 mg PO Q6H PRN #30 tab 11/29/20 [Rx] Follow up Appointment(s)/Referral(s): David Gould MD [STAFF PHYSICIAN] - 01/16/21 11:30 am Patient Instructions/Handouts: Vaginal Delivery (DC) Activity/Diet/Wound Care/Special Instructions: No intercourse or anything per vagina for 6 weeks. Please call if any fever, chills, excessive vaginal bleeding, and/or abdominal pain. Discharge Disposition: HOME SELF-CARE
[2020-11-29] MEDS: SENNOSIDES-DOCUSATE SODIUM 1 EACH TAB PO SCH (08:01)
[2020-11-29 08:03] VITALS: BP 120/69
[2020-11-29 15:29] VITALS: PULSE 85; RESP 20; TEMP 98.4
== END 2020-11-29 18:45 | disposition home or self-care (01) | DRG 807 ==
LOC: 4FBP 05:36
PROVIDERS: ADMIT Obstetrics & Gynecology; ATTEND Obstetrics & Gynecology
PROC: 10E0XZZ Delivery of Products of Conception, External Approach (ICD-10-PCS; principal; 2020-11-28)
PROC: 0KQM0ZZ Repair Perineum Muscle, Open Approach (ICD-10-PCS; principal; 2020-11-28)
DX: O69.81X0 Labor and delivery complicated by cord around neck, without compression, not applicable or unspecified (principal); Z37.0 Single live birth; O70.1 Second degree perineal laceration during delivery; Z3A.39 39 weeks gestation of pregnancy
CPT/HCPCS: 85025; 86850; 86900; 86901

== ENCOUNTER → 2021-10-30 | Outpatient (CLI) | payer OTHER ==
[2021-10-30 23:26] LABS: HCG,Quantitative Serum <3.0 (0.0-6.0)
== END | disposition home or self-care (01) ==
LOC: LABWHC1 14:37
PROVIDERS: ATTEND Obstetrics & Gynecology
DX: Z13.29 Encounter for screening for other suspected endocrine disorder (principal); R53.81 Other malaise; R53.83 Other fatigue; N94.89 Other specified conditions associated with female genital organs and menstrual cycle
CPT/HCPCS: 36415; 84439; 84443; 84479; 84702

== ENCOUNTER → 2022-06-23 | Outpatient (CLI) | payer OTHER | END | disposition home or self-care (01) | LOC: LABWHC1 09:48 | PROVIDERS: ATTEND Obstetrics & Gynecology | DX: N94.89 Other specified conditions associated with female genital organs and menstrual cycle (principal) | CPT/HCPCS: 36415; 84702 ==

== ENCOUNTER 2023-01-25 06:00 | Emergency (ER) | payer OTHER ==
[2023-01-25 06:08] VITALS: RESP 18
[2023-01-25] MEDS ORDERED: SODIUM CHLORIDE 0.9% 1,000 ML IV STA (06:32)
[2023-01-25] MEDS ORDERED: KETOROLAC 15 MG/ML 1 ML VIAL IVP STA (06:32)
--- NOTE | 2023-01-25 06:37 | ED ---
Abdominal Pain HPI - General Chief Complaint: Abdominal Pain Stated Complaint: Abdominal Pain Time Seen by Provider: 01/25/23 06:14 Source: patient, RN notes reviewed Mode of arrival: ambulatory Limitations: no limitations - History of Present Illness Initial Comments: This is a 27-year-old female who presents to the emergency department for abdominal pain. States that this is in the mid to upper aspect of her abdomen. This started predominantly last night. However, 2 days ago, she did have some generalized cramping. Denies any nausea or vomiting. She has not a bowel movement since yesterday, because it hurts when she tries to bear down. Yin shilpi, she does not specifically feel like she is constipated. Denies any urinary symptoms. Also denies any nausea or vomiting. Denies any history of similar abdominal pain in the past. Denies any fevers, chills, sore throat, cough, dyspnea, chest pain, palpitations, nausea, vomiting, diarrhea, back pain, or headaches. MD Complaint: abdominal pain Onset/Timin -: days(s) Location: diffuse - Related Data Home Medications Medication Instructions Recorded Confirmed Vit No.180/Iron/Folic 1 each PO DAILY 01/13/19 11/28/20 [ Plus Tablet] Previous Rx's Medication Instructions Recorded Ibuprofen [Motrin] 600 mg PO Q6H PRN #30 tab 11/29/20 HYDROcodone/APAP 7.5-325MG [[place] 1 tab PO Q6HR PRN 3 Days #12 tab 01/25/23 7.5-325] Ketorolac [Toradol] 10 mg PO Q6HR PRN #12 tab 01/25/23 Allergies Allergy/AdvReac Type Severity Reaction Status Date / Time No Known Allergies Allergy Verified 01/25/23 06:08 Review of Systems ROS Statement: Those systems with pertinent positive or pertinent negative responses have been documented in the HPI. ROS Other: All systems not noted in ROS Statement are negative. Past Medical History Past Medical History: No Reported History Additional Past Medical History / Comment(s): Palpitations with negative evaluation. Previous term vaginal delivery, scoliosis History of Any Multi-Drug Resistant Organisms: None Reported Past Surgical History: No Surgical Hx Reported Past Anesthesia/Blood Transfusion Reactions: No Reported Reaction Past Psychological History: No Psychological Hx Reported Smoking Status: Never smoker Past Alcohol Use History: Occasional Past Drug Use History: None Reported - Past Family History Mother Family Medical History: No Reported History General Exam Limitations: no limitations General appearance: alert, in no apparent distress Head exam: Present: atraumatic, normocephalic, normal inspection Respiratory exam: Present: normal lung sounds bilaterally. Absent: respiratory distress, wheezes, rales, rhonchi, stridor Cardiovascular Exam: Present: regular rate, normal rhythm, normal heart sounds. Absent: systolic murmur, diastolic murmur, rubs, gallop, clicks GI/Abdominal exam: Present: soft, tenderness (periumbilical to epigastric), normal bowel sounds. Absent: distended Neurological exam: Present: alert, oriented X3, CN II-XII intact Psychiatric exam: Present: normal affect, normal mood Skin exam: Present: warm, dry, intact, normal color. Absent: rash Course Vital Signs 01/25/23 01/25/23 01/25/23 06:06 08:57 10:53 Temperature 99.1 F 97.6 F Pulse Rate 93 70 71 Respiratory 18 18 18 Rate Blood Pressure 129/87 117/68 118/73 O2 Sat by Pulse 96 98 97 Oximetry Medical Decision Making - Medical Decision Making This is a 27-year-old female who presents to the emergency department for abdominal pain. Was pt. sent in by a medical professional or institution? @ -No Did you speak to anyone other than the patient for history? @ -No Did you review nursing and triage notes? @ -Yes, and I agree, it is accurate with regards to the patient's symptoms. Were old charts reviewed? @ -No Differential Diagnosis? @ -Differential Abdominal Pain Women: Appendicitis, Cholecystitis, diverticulosis, ischemic bowel, pancreatitis, hepatitis, UTI, gastroenteritis, AAA, incarcerated hernia, bowel obstruction, constipation, inflammatory bowel, hepatitis, peptic ulcer disease, splenic infarction, perforated viscus, vulvitis, ovarian torsion, PID, kidney stone, placenta abruption, this is not meant to be an all-inclusive list EKG interpreted by me (3pts min.)? @ -Not obtained X-rays interpreted by me (1pt min.)? @ -Not obtained CT interpreted by me (1pt min.)? @ -Computed tomography scan of the abdomen and pelvis obtained. My interpret ation identifies free fluid in the pelvis. U/S interpreted by me (1pt. min.)? @ -Not interpreted by me What testing was considered but not performed? (CT, X-rays, U/S, labs)? Why? @ -None What meds were considered but not given? Why? @ -None Did you discuss the management of the patient with other professionals? @ -Yes, Dr. Morgan, [employer], who advised repeating the CBC, and said that the patient can be discharged home with pain medication and outpatient follow-up as long as her hemoglobin remained fairly stable. Did you reconcile home meds? @ -No Was smoking cessation discussed for >3mins.? @ -No Was critical care preformed (if so, how long)? @ -No Were there social determinants of health that impacted care today? How? (Homelessness, low income, unemployed, alcoholism, drug addiction, transportation, low edu. Level, literacy, decrease access to med. care, penitentiary, rehab)? @ -No Was there de-escalation of care discussed even if they declined? (Discuss DNR or withdrawal of care, Hospice)? @ -No What co-morbidities impacted this encounter? (DM, HTN, Smoking, COPD, CAD, Cancer, CVA, Hep., AIDS, mental health diagnosis, sleep apnea, morbid obesity)? @ -None Was patient admitted / discharged? @ -Discharged. Lab work obtained and found to be relatively nonactionable, hemo globin was slightly low at 10.8. Given the location of her pain, we initially obtained a computed tomography scan of the abdomen and pelvis. This revealed a probable ruptured ovarian cyst with hemorrhagic fluid in the pelvis. There was also free fluid noted in the abdomen. Pelvic ultrasound was subsequently obtained. This revealed complex fluid in the cul-de-sac suggestive of a hemorrhagic ovarian cyst. Given the extent of the fluid, I discussed the case with Dr. Morgan, [employer]. She recommended repeating the CBC. This was repeated after about 4 hours, and the hemoglobin was 10.3. She also received a liter bolus of IV fluids. Dr. Morgan advised that if there is no substantial drop, patient can be safely discharged home with outpatient follow-up and pain medication. Her symptoms were well controlled in the emergency department. Given that the hemoglobin remained stable, she was discharged home in stable condition. Rx for [place] and Toradol provided with dosing instructions reviewed. Advised taking the [place] sparingly when her pain is the most severe and to avoid driving or operating machinery when taking this. She is also instructed to contact her [employer] for a follow-up appointment. Undiagnosed new problem with uncertain prognosis? @ -None Drug Therapy requiring intensive monitoring for toxicity (Heparin, Nitro, Insulin, Cardizem)? @ -None Were any procedures done? @ -None Diagnosis/symptom? @ -Ovarian cyst rupture Acute, or Chronic, or Acute on Chronic? @ -Acute Uncomplicated (without systemic symptoms) or Complicated (systemic symptoms)? @ -Uncomplicated Side effects of treatment? @ -None Exacerbation, Progression, or Severe Exacerbation] @ -Not applicable Poses a threat to life or bodily function? @ -No Return precautions reviewed in depth, the patient is instructed to return to the emergency department with any new, worsening, or concerning symptoms. Patient verbalized understanding. This case was discussed in detail with the attending ED physician, Dr. Roy. Presentation, findings, and treatment plan discussed in detail as well. - Lab Data Result diagrams: 01/25/23 10:44 01/25/23 06:39 Lab Results 01/25/23 01/25/23 01/25/23 Range/Units 06:39 06:39 06:39 WBC 8.2 (3.8-10.6) k/uL RBC 3.84 (3.80-5.40) m/uL Hgb 10.8 L (11.4-16.0) gm/dL Hct 32.3 L (34.0-46.0) % MCV 84.3 (80.0-100.0) fL MCH 28.1 (25.0-35.0) pg MCHC 33.3 (31.0-37.0) g/dL RDW 15.8 H (11.5-15.5) % Plt Count 156 (150-450) k/uL MPV 9.6 Neutrophils % 71 % Lymphocytes % 19 % Monocytes % 7 % Eosinophils % 2 % Basophils % 0 % Neutrophils # 5.8 (1.3-7.7) k/uL Lymphocytes # 1.6 (1.0-4.8) k/uL Monocytes # 0.6 (0-1.0) k/uL Eosinophils # 0.2 (0-0.7) k/uL Basophils # 0.0 (0-0.2) k/uL Sodium (137-145) mmol/L Potassium (3.5-5.1) mmol/L Chloride (98-107) mmol/L Carbon Dioxide (22-30) mmol/L Anion Gap mmol/L BUN (7-17) mg/dL Creatinine (0.52-1.04) mg/dL Est GFR (CKD-EPI)AfAm (>60 ml/min/1.73 sqM) Est GFR (CKD-EPI)NonAf (>60 ml/min/1.73 sqM) Glucose (74-99) mg/dL Plasma Lactic Acid Emiliano (0.7-2.0) mmol/L Calcium (8.4-10.2) mg/dL Total Bilirubin (0.2-1.3) mg/dL AST (14-36) U/L ALT (4-34) U/L Alkaline Phosphatase (38-126) U/L Total Protein (6.3-8.2) g/dL Albumin (3.5-5.0) g/dL Amylase (30-110) U/L Lipase (23-300) U/L Urine Color Light Yellow Urine Appearance Cloudy H (Clear) Urine pH 6.0 (5.0-8.0) Ur Specific [place] 1.018 (1.001-1.035) Urine Protein Negative (Negative) Urine Glucose (UA) Negative (Negative) Urine Ketones Negative (Negative) Urine Blood Negative (Negative) Urine Nitrite Negative (Negative) Urine Bilirubin Negative (Negative) Urine Urobilinogen <2.0 (<2.0) mg/dL Ur Leukocyte Esterase Moderate H (Negative) Urine RBC 1 (0-5) /hpf Urine WBC 6 H (0-5) /hpf Ur Squamous Epith Cells 8 H (0-4) /hpf Urine Mucus Rare H (None) /hpf Urine HCG, Qual Not Detected (Not Detectd) 01/25/23 01/25/23 01/25/23 Range/Units 06:39 06:39 10:44 WBC 6.9 (3.8-10.6) k/uL RBC 3.65 L (3.80-5.40) m/uL Hgb 10.3 L (11.4-16.0) gm/dL Hct 30.6 L (34.0-46.0) % MCV 83.9 (80.0-100.0) fL MCH 28.4 (25.0-35.0) pg MCHC 33.8 (31.0-37.0) g/dL RDW 15.7 H (11.5-15.5) % Plt Count 162 (150-450) k/uL MPV 9.4 Neutrophils % 72 % Lymphocytes % 20 % Monocytes % 5 % Eosinophils % 2 % Basophils % 0 % Neutrophils # 4.9 (1.3-7.7) k/uL Lymphocytes # 1.4 (1.0-4.8) k/uL Monocytes # 0.4 (0-1.0) k/uL Eosinophils # 0.1 (0-0.7) k/uL Basophils # 0.0 (0-0.2) k/uL Sodium 137 (137-145) mmol/L Potassium 4.3 (3.5-5.1) mmol/L Chloride 107 (98-107) mmol/L Carbon Dioxide 26 (22-30) mmol/L Anion Gap 4 mmol/L BUN 14 (7-17) mg/dL Creatinine 0.74 (0.52-1.04) mg/dL Est GFR (CKD-EPI)AfAm >90 (>60 ml/min/1.73 sqM) Est GFR (CKD-EPI)NonAf >90 (>60 ml/min/1.73 sqM) Glucose 101 H (74-99) mg/dL Plasma Lactic Acid Emiliano 0.8 (0.7-2.0) mmol/L Calcium 8.8 (8.4-10.2) mg/dL Total Bilirubin 0.4 (0.2-1.3) mg/dL AST 20 (14-36) U/L ALT 18 (4-34) U/L Alkaline Phosphatase 65 (38-126) U/L Total Protein 6.3 (6.3-8.2) g/dL Albumin 3.7 (3.5-5.0) g/dL Amylase 51 (30-110) U/L Lipase 39 (23-300) U/L Urine Color Urine Appearance (Clear) Urine pH (5.0-8.0) Ur Specific [place] (1.001-1.035) Urine Protein (Negative) Urine Glucose (UA) (Negative) Urine Ketones (Negative) Urine Blood (Negative) Urine Nitrite (Negative) Urine Bilirubin (Negative) Urine Urobilinogen (<2.0) mg/dL Ur Leukocyte Esterase (Negative) Urine RBC (0-5) /hpf Urine WBC (0-5) /hpf Ur Squamous Epith Cells (0-4) /hpf Urine Mucus (None) /hpf Urine HCG, Qual (Not Detectd) - Radiology Data Radiology results: report reviewed, image reviewed Disposition Clinical Impression: Hemorrhagic ovarian cyst Disposition: HOME SELF-CARE Instructions (If sedation given, give patient instructions): Ruptured Ovarian Cyst (ED) Additional Instructions: Return to the emergency department with any new, worsening, or concerning symptoms. Take the Toradol with Tylenol for pain relief. Do not take the Toradol with another anti-inflammatory such as ibuprofen. Take the [place] sparingly when your pain is the most severe and avoid driving or operating machinery when taking this. Contact the [employer] office either today or Wednesday morning for a follow-up appointment. Follow up with your primary care provider in 1-2 days. Prescriptions: HYDROcodone/APAP 7.5-325MG [[place] 7.5-325] 1 tab PO Q6HR PRN 3 Days #12 tab PRN Reason: Pain Ketorolac [Toradol] 10 mg PO Q6HR PRN #12 tab PRN Reason: Pain Is patient prescribed a controlled substance at d/c from ED?: Yes When asked, does pt state using other controlled substances?: No If prescribed controlled substance>3 days was MAPS reviewed?: Prescribed <3 Days Referrals: Trent Gonzalez DO [Primary Care Provider] - 1-2 days David Gould MD [STAFF PHYSICIAN] - 1-2 days
[2023-01-25 07:12] LABS: Basophils % (A) 0 %; Eosinophils # (A) 0.2 k/uL (0-0.7); Eosinophils % (A) 2 %; HCT 32.3 % (34.0-46.0); HGB 10.8 gm/dL (11.4-16.0); Lymphocytes # (A) 1.6 k/uL (1.0-4.8); Lymphocytes % (A) 19 %; MCH 28.1 pg (25.0-35.0); MCHC 33.3 g/dL (31.0-37.0); MCV 84.3 fL (80.0-100.0); Mean Platelet Volume 9.6; Monocytes # (A) 0.6 k/uL (0-1.0); Monocytes % (A) 7 %; Neutrophils # (A) 5.8 k/uL (1.3-7.7); Neutrophils % (A) 71 %; Platelet Count 156 k/uL (150-450); RBC 3.84 m/uL (3.80-5.40); RDW 15.8 % (11.5-15.5); WBC 8.2 k/uL (3.8-10.6)
[2023-01-25 07:21] LABS: ALT 18 U/L (4-34); AST 20 U/L (14-36); African American GFR (CKD) >90 (>60 ml/min/1.73 sqM); Albumin 3.7 g/dL (3.5-5.0); Alkaline Phosphatase 65 U/L (38-126); Amylase 51 U/L (30-110); Anion Gap 4 mmol/L; Appearance,Urine Cloudy (Clear); Bilirubin,Urine Negative (Negative); Blood Urea Nitrogen 14 mg/dL (7-17); Blood,Urine Negative (Negative); Calcium 8.8 mg/dL (8.4-10.2); Carbon Dioxide 26 mmol/L (22-30); Chloride 107 mmol/L (98-107); Color,Urine Light Yellow; Glucose 101 mg/dL (74-99); Glucose,Urine (UA) Negative (Negative); Ketones,Urine Negative (Negative); Leukocyte Esterase,Urine Moderate (Negative); Lipase 39 U/L (23-300); Mucus,Urine Rare /hpf; Nitrite,Urine Negative (Negative); Non-African American GFR(CKD) >90 (>60 ml/min/1.73 sqM); Potassium 4.3 mmol/L (3.5-5.1); Protein,Urine Negative (Negative); RBC,Urine 1 /hpf (0-5); Sodium 137 mmol/L (137-145); Specific Gravity,Urine 1.018 (1.001-1.035); Squamous Epithelial Cell,Urine 8 /hpf (0-4); Total Bilirubin 0.4 mg/dL (0.2-1.3); Total Protein 6.3 g/dL (6.3-8.2); Urobilinogen,Urine <2.0 mg/dL (<2.0); WBC,Urine 6 /hpf (0-5)
--- NOTE | 2023-01-25 08:17 | CT ---
EXAMINATION TYPE: CT abdomen pelvis w con DATE OF EXAM: 01/25/2023 COMPARISON: None HISTORY: Abdominal pain, acute, nonlocalized CT DLP: 1335 mGycm CONTRAST: CT scan of the abdomen and pelvis is performed without Oral Contrast and with IV Contrast, patient in jected with 100 ml mL of Isovue 300. FINDINGS: LUNG BASES-: No visible nodule. No infiltrate. LIVER/GB: No calcified gallstones. No space occupying hepatic lesion. Biliary tree is of normal ca liber. PANCREAS: No inflammation. No distinct mass. SPLEEN: No splenic enlargement. No lesion seen. ADRENALS: No nodule. No thickening. KIDNEYS/BLADDER: No hydronephrosis. No nephrolithiasis. No distinct renal mass. Urinary bladder g rossly unremarkable. BOWEL: Normal appendix. Normal bowel caliber. No inflammation. GENITAL ORGANS: There is hemorrhagic fluid within the pelvis. Right ovarian cystic lesion is noted an d measures 2.8 cm. The uterus appears unremarkable. Free fluid is seen within the paracolic gutters a nd about the hepatic margins LYMPH NODES: No greater than 1cm abdominal or pelvic lymph nodes are appreciated. AORTA: No significant abnormality. OSSEOUS STRUCTURES: No significant abnormality is seen. OTHER: No significant additional abnormality is seen. IMPRESSION: 1. Probable ruptured ovarian cyst with hemorrhagic fluid within the pelvis. Right ovarian cystic lesi on noted. Free fluid within the abdomen is noted.
[2023-01-25] MEDS ORDERED: MORPHINE SULFATE 2 MG/ML SYRINGE IVP STA (08:30)
--- NOTE | 2023-01-25 10:06 | US ---
EXAMINATION TYPE: US transvaginal DATE OF EXAM: 01/25/2023 COMPARISON: NONE CLINICAL INDICATION: Female, 27 years old with history of Possible ruptured ovarian cyst on CT; Pain ruptured cyst. TECHNIQUE: Transvaginal (TV). EXAM MEASUREMENTS: Uterus: 10.8 x 5.5 x 6.9 cm Endometrial Stripe: 1.3 cm Right Ovary: 4.7 x 2.9 x 4.0 cm 1. Uterus: Anteverted wnl 2. Endometrium: wnl 3. Right Ovary: Follicles seen complex area surrounding ovary. 4. Left Ovary: Obscured by overlying bowel gas Spectral, color and waveform doppler imaging shows good arterial and venous flow within the right o vary; there is no evidence for ovarian torsion. 5. Bilateral Adnexa: complex fluid visualized. 6. Posterior cul-de-sac: 9.2 x 3.5 cm complex area visualized suggestive of ruptured ovarian cyst. IMPRESSION: 1. Complex fluid within the cul-de-sac. Hemorrhage should be considered. Consider ruptured hemorrhagi c cyst or other etiologies.
[2023-01-25 10:54] VITALS: BP 118/73; PULSE 71; TEMP 97.6
[2023-01-25 11:04] LABS: Basophils % (A) 0 %; Eosinophils # (A) 0.1 k/uL (0-0.7); Eosinophils % (A) 2 %; HCT 30.6 % (34.0-46.0); HGB 10.3 gm/dL (11.4-16.0); Lymphocytes # (A) 1.4 k/uL (1.0-4.8); Lymphocytes % (A) 20 %; MCH 28.4 pg (25.0-35.0); MCHC 33.8 g/dL (31.0-37.0); MCV 83.9 fL (80.0-100.0); Mean Platelet Volume 9.4; Monocytes # (A) 0.4 k/uL (0-1.0); Monocytes % (A) 5 %; Neutrophils # (A) 4.9 k/uL (1.3-7.7); Neutrophils % (A) 72 %; Platelet Count 162 k/uL (150-450); RBC 3.65 m/uL (3.80-5.40); RDW 15.7 % (11.5-15.5); WBC 6.9 k/uL (3.8-10.6)
[2023-01-25] MEDS: MORPHINE SULFATE 4 MG/ML SYRINGE IVP STA ×2 (11:20→11:49)
== END 2023-01-25 11:55 | disposition home or self-care (01) ==
LOC: EC 06:00
DX: N83.201 Unspecified ovarian cyst, right side (principal)
CPT/HCPCS: 99284 ×2; 96374 ×2; 96375 ×2; 96376 ×2; 96361 ×3; 36415; 80053; 82150; 83605; 83690; 85025; 81001; 81025; 76830; 74177; J2270 ×2; J1885; Q9967

== ENCOUNTER → 2023-03-08 | Outpatient (CLI) | payer OTHER ==
--- NOTE | 2023-03-08 09:01 | US ---
EXAMINATION TYPE: US pelvic complete DATE OF EXAM: 03/08/2023 COMPARISON: Transvaginal ultrasound 01/25/2023, CT abdomen pelvis 01/25/2023 CLINICAL INDICATION: Female, 27 years old with history of N83.209 UNSPECIFIED OVARIAN CYST; History o f ovarian cysts TECHNIQUE: Transabdominal (TA). Date of LMP: 03/06/23 EXAM MEASUREMENTS: Uterus: 10.8 x 4.4 x 6.1 cm Endometrial Stripe: 0.9 cm Right Ovary: 2.9 x 2.3 x 2.3 cm Left Ovary: 3.2 x 1.7 x 1.6 cm 1. Uterus: Anteverted wnl 2. Endometrium: wnl 3. Right Ovary: follicles noted 4. Left Ovary: follicles noted 5. Bilateral Adnexa: wnl 6. Posterior cul-de-sac: wnl Unremarkable anteverted uterus. Endometrium is within normal limits. Both ovaries demonstrate follicl es with a normal appearance. No free fluid. Resolution of previously demonstrated complex fluid withi n the cul-de-sac. IMPRESSION: 1. No acute process. 2. Resolution of complex fluid within the cul-de-sac.
== END | disposition home or self-care (01) ==
LOC: RADUSWWP 08:22
PROVIDERS: ATTEND Obstetrics & Gynecology
DX: N83.209 Unspecified ovarian cyst, unspecified side (principal)
CPT/HCPCS: 76856

== ENCOUNTER 2023-10-03 16:08 | Emergency (ER) | payer OTHER ==
--- NOTE | 2023-10-03 16:50 | ED ---
General Adult HPI - General Chief complaint: Psychiatric Symptoms Stated complaint: Mental Health Time Seen by Provider: 10/03/23 16:23 Source: patient Mode of arrival: ambulatory Limitations: no limitations, physical limitation - History of Present Illness Initial comments: Dictation was produced using [employer] dictation software. please excuse any grammatical, word or spelling errors. Chief Complaint: 27-year-old female presents with depression History of Present Illness: Patient 27-year-old female she has been feeling depressed. She has never been in the hospital for some like this before. She does report suicidal ideation however does not have a specific plan. Denies any homicidal ideation. She states she hears voices talking in her head. Denies any visual hallucinations. Patient denies any psychiatric history. The ROS documented in this emergency department record has been reviewed and confirmed by me. Those systems with pertinent positive or negative responses have been documented in the HPI. All other systems are other negative and/or noncontributory. - Related Data Home Medications Medication Instructions Recorded Confirmed Celecoxib [CeleBREX] 200 mg PO BID PRN 10/03/23 10/03/23 Desvenlafaxine Succinate [Pristiq 100 mg PO HS 10/03/23 10/03/23 ER] clonazePAM [Klonopin] 0.5 mg PO DAILY PRN 10/03/23 10/03/23 Allergies Allergy/AdvReac Type Severity Reaction Status Date / Time No Known Allergies Allergy Verified 10/03/23 17:09 Review of Systems ROS Statement: Those systems with pertinent positive or pertinent negative responses have been documented in the HPI. ROS Other: All systems not noted in ROS Statement are negative. Past Medical History Past Medical History: No Reported History Additional Past Medical History / Comment(s): Palpitations with negative evaluation. Previous term vaginal delivery, scoliosis History of Any Multi-Drug Resistant Organisms: None Reported Past Surgical History: No Surgical Hx Reported Past Anesthesia/Blood Transfusion Reactions: No Reported Reaction Past Psychological History: Anxiety, Depression Smoking Status: Never smoker Past Alcohol Use History: Occasional Past Drug Use History: None Reported - Past Family History Mother Family Medical History: No Reported History General Exam - General Exam Comments Initial Comments: General: Well-appearing, nontoxic, no acute distress. Head: Normocephalic, atraumatic Eyes: PERRLA, EOMI ENT: Airway patent Chest: Nonlabored breathing Skin: No visual rash, normal skin tone Neuro: Alert and oriented 3 Musculoskeletal: No gross abnormalities Limitations: no limitations, physical limitation Course Vital Signs 10/03/23 10/04/23 16:20 00:30 Temperature 98.2 F 97.6 F Pulse Rate 93 71 Respiratory 20 16 Rate Blood Pressure 118/82 105/67 O2 Sat by Pulse 98 98 Oximetry Medical Decision Making - Medical Decision Making Was pt. sent in by a medical professional or institution (, PA, MANAGER ACTION, urgent care, hospital, or longterm...) When possible be specific @ -No Did you speak to anyone other than the patient for history (EMS, parent, family, police, friend...)? What history was obtained from this source @ -No Did you review nursing and triage notes (agree or disagree)? Why? @ -I reviewed and agree with nursing and triage notes Were old charts reviewed (outside hosp., previous admission, EMS record, old EKG, old radiological studies, urgent care reports/EKG's, longterm records)? Report findings @ -No old charts were reviewed Differential Diagnosis (chest pain, altered mental status, abdominal pain women, abdominal pain men, vaginal bleeding, musculoskeletal, weakness, fever, dyspnea, syncope, headache, dizziness, GI bleed, back pain, seizure, CVA, palpatations, mental health)? @ -Differential Mental Health: Depression, anxiety, bipolar, psychosis, schizophrenia, borderline personality, situational depression, adjustment disorder, behavioral disorder, brain tumor, malingering, substance abuse, encephalopathy, medication reaction, dementia, hypothyroidism, degenerative neurologic disorder, lupus.... This is not meant to be all-inclusive list EKG interpreted by me (3pts min.). @ -None done X-rays interpreted by me (1pt min.). @ -None done CT interpreted by me (1pt min.). @ -None done U/S interpreted by me (1pt. min.). @ -None done What testing was considered but not performed or refused? (CT, X-rays, U/S, labs)? Why? @ -None What meds were considered but not given or refused? Why? @ -None Did you discuss the management of the patient with other professionals (professionals i.e. , PA, MANAGER ACTION, lab, RT, psych nurse, pediatric social worker, time broker, teacher, global chief creative officer, top case assembler)? Give summary @ -Case discussed with APS who recommends patient be transferred to outside psych facility Was smoking cessation discussed for >3mins.? @ -No Was critical care preformed (if so, how long)? @ -No Were there social determinants of health that impacted care today? How? (Homelessness, low income, unemployed, alcoholism, drug addiction, transportation, low edu. Level, literacy, decrease access to med. care, detention, r ehab)? @ -No Was there de-escalation of care discussed even if they declined (Discuss DNR or withdrawal of care, Hospice)? DNR status @ -No What co-morbidities impacted this encounter? (DM, HTN, Smoking, COPD, CAD, Cancer, CVA, ARF, Chemo, Hep., AIDS, mental health diagnosis, sleep apnea, morbid obesity)? @ -None Was patient admitted / discharged? Hospital course, mention meds given and route, prescriptions, significant lab abnormalities, going to OR and other pertinent info. @ -27-year-old female presents emergency department for suicidal ideation. Vital signs stable. Physical examination is unremarkable. Patient has no medical complaints. Patient medically cleared for EPS evaluation. Patient evaluated by EPS transferred to inpatient psych facility EPS evaluated patient recommended transfer to inpatient psych. Undiagnosed new problem with uncertain prognosis? @ -No Drug Therapy requiring intensive monitoring for toxicity (Heparin, Nitro, Insulin, Cardizem)? @ -No Were any procedures done? @ -No Diagnosis/symptom? Acute, or Chronic, or Acute on Chronic? Uncomplicated ( without systemic symptoms) or Complicated (systemic symptoms)? @ -Suicidal ideation Side effects of treatment? @ -No Exacerbation, Progression, or Severe Exacerbation? @ -No Poses a threat to life or bodily function? How? (Chest pain, USA, ME, pneumonia, PE, COPD, DKA, ARF, appy, cholecystitis, CVA, Diverticulitis, Homicidal, Suicidal, threat to staff... and all critical care pts) @ -Yes - Lab Data Result diagrams: 10/03/23 20:05 10/03/23 20:05 Lab Results 10/03/23 10/03/23 10/03/23 Range/Units 20:00 20:05 20:05 WBC 7.4 (3.8-10.6) k/uL RBC 4.60 (3.80-5.40) m/uL Hgb 13.3 (11.4-16.0) gm/dL Hct 39.1 (34.0-46.0) % MCV 85.1 (80.0-100.0) fL MCH 28.9 (25.0-35.0) pg MCHC 33.9 (31.0-37.0) g/dL RDW 13.6 (11.5-15.5) % Plt Count 208 (150-450) k/uL MPV 8.8 Neutrophils % 57 % Lymphocytes % 33 % Monocytes % 5 % Eosinophils % 2 % Basophils % 1 % Neutrophils # 4.2 (1.3-7.7) k/uL Lymphocytes # 2.5 (1.0-4.8) k/uL Monocytes # 0.4 (0-1.0) k/uL Eosinophils # 0.2 (0-0.7) k/uL Basophils # 0.1 (0-0.2) k/uL Sodium (137-145) mmol/L Potassium (3.5-5.1) mmol/L Chloride (98-107) mmol/L Carbon Dioxide (22-30) mmol/L Anion Gap mmol/L BUN (7-17) mg/dL Creatinine (0.52-1.04) mg/dL Est GFR (CKD-EPI)AfAm (>60 ml/min/1.73 sqM) Est GFR (CKD-EPI)NonAf (>60 ml/min/1.73 sqM) Glucose (74-99) mg/dL Calcium (8.4-10.2) mg/dL Total Bilirubin (0.2-1.3) mg/dL AST (14-36) U/L ALT (4-34) U/L Alkaline Phosphatase (38-126) U/L Total Protein (6.3-8.2) g/dL Albumin (3.5-5.0) g/dL Urine Color Colorless Urine Appearance Turbid H (Clear) Urine pH 7.0 (5.0-8.0) Ur Specific Cascade 1.018 (1.001-1.035) Urine Protein Negative (Negative) Urine Glucose (UA) Negative (Negative) Urine Ketones Negative (Negative) Urine Blood Negative (Negative) Urine Nitrite Negative (Negative) Urine Bilirubin Negative (Negative) Urine Urobilinogen <2.0 (<2.0) mg/dL Ur Leukocyte Esterase Small H (Negative) Urine WBC 10 H (0-5) /hpf Ur Squamous Epith Cells 2 (0-4) /hpf Amorphous Sediment Rare H (None) /hpf Urine Bacteria Many H (None) /hpf Urine HCG, Qual Not Detected (Not Detectd) Urine Opiates Screen Not Detected (NotDetected) Ur Oxycodone Screen Not Detected (NotDetected) Urine Methadone Screen Not Detected (NotDetected) Ur Barbiturates Screen Not Detected (NotDetected) U Tricyclic Antidepress Not Detected (NotDetected) Ur Phencyclidine Scrn Not Detected (NotDetected) Ur Amphetamines Screen Not Detected (NotDetected) U Methamphetamines Scrn Not Detected (NotDetected) U Benzodiazepines Scrn Not Detected (NotDetected) Urine Cocaine Screen Not Detected (NotDetected) U Marijuana (THC) Screen Not Detected (NotDetected) SARS-CoV-2 (PCR) (Not Detectd) 10/03/23 10/03/23 Range/Units 20:05 20:05 WBC (3.8-10.6) k/uL RBC (3.80-5.40) m/uL Hgb (11.4-16.0) gm/dL Hct (34.0-46.0) % MCV (80.0-100.0) fL MCH (25.0-35.0) pg MCHC (31.0-37.0) g/dL RDW (11.5-15.5) % Plt Count (150-450) k/uL MPV Neutrophils % % Lymphocytes % % Monocytes % % Eosinophils % % Basophils % % Neutrophils # (1.3-7.7) k/uL Lymphocytes # (1.0-4.8) k/uL Monocytes # (0-1.0) k/uL Eosinophils # (0-0.7) k/uL Basophils # (0-0.2) k/uL Sodium 140 (137-145) mmol/L Potassium 4.3 (3.5-5.1) mmol/L Chloride 107 (98-107) mmol/L Carbon Dioxide 28 (22-30) mmol/L Anion Gap 5 mmol/L BUN 16 (7-17) mg/dL Creatinine 0.78 (0.52-1.04) mg/dL Est GFR (CKD-EPI)AfAm >90 (>60 ml/min/1.73 sqM) Est GFR (CKD-EPI)NonAf >90 (>60 ml/min/1.73 sqM) Glucose 95 (74-99) mg/dL Calcium 10.0 (8.4-10.2) mg/dL Total Bilirubin 0.3 (0.2-1.3) mg/dL AST 24 (14-36) U/L ALT 21 (4-34) U/L Alkaline Phosphatase 88 (38-126) U/L Total Protein 7.1 (6.3-8.2) g/dL Albumin 4.3 (3.5-5.0) g/dL Urine Color Urine Appearance (Clear) Urine pH (5.0-8.0) Ur Specific Cascade (1.001-1.035) Urine Protein (Negative) Urine Glucose (UA) (Negative) Urine Ketones (Negative) Urine Blood (Negative) Urine Nitrite (Negative) Urine Bilirubin (Negative) Urine Urobilinogen (<2.0) mg/dL Ur Leukocyte Esterase (Negative) Urine WBC (0-5) /hpf Ur Squamous Epith Cells (0-4) /hpf Amorphous Sediment (None) /hpf Urine Bacteria (None) /hpf Urine HCG, Qual (Not Detectd) Urine Opiates Screen (NotDetected) Ur Oxycodone Screen (NotDetected) Urine Methadone Screen (NotDetected) Ur Barbiturates Screen (NotDetected) U Tricyclic Antidepress (NotDetected) Ur Phencyclidine Scrn (NotDetected) Ur Amphetamines Screen (NotDetected) U Methamphetamines Scrn (NotDetected) U Benzodiazepines Scrn (NotDetected) Urine Cocaine Screen (NotDetected) U Marijuana (THC) Screen (NotDetected) SARS-CoV-2 (PCR) Not Detected (Not Detectd) Disposition Clinical Impression: Depression Disposition: TRANSFER TO PSYCH HOSP/UNIT Condition: Fair Referrals: Trent Gonzalez DO [Primary Care Provider] - 1-2 days
[2023-10-03 20:22] LABS: Basophils # (A) 0.1 k/uL (0-0.2); Basophils % (A) 1 %; Eosinophils # (A) 0.2 k/uL (0-0.7); Eosinophils % (A) 2 %; HCT 39.1 % (34.0-46.0); HGB 13.3 gm/dL (11.4-16.0); Lymphocytes # (A) 2.5 k/uL (1.0-4.8); Lymphocytes % (A) 33 %; MCH 28.9 pg (25.0-35.0); MCHC 33.9 g/dL (31.0-37.0); MCV 85.1 fL (80.0-100.0); Mean Platelet Volume 8.8; Monocytes # (A) 0.4 k/uL (0-1.0); Monocytes % (A) 5 %; Neutrophils # (A) 4.2 k/uL (1.3-7.7); Neutrophils % (A) 57 %; Platelet Count 208 k/uL (150-450); RDW 13.6 % (11.5-15.5); WBC 7.4 k/uL (3.8-10.6)
[2023-10-03 20:30] LABS: ALT 21 U/L (4-34); AST 24 U/L (14-36); African American GFR (CKD) >90 (>60 ml/min/1.73 sqM); Albumin 4.3 g/dL (3.5-5.0); Alkaline Phosphatase 88 U/L (38-126); Anion Gap 5 mmol/L; Blood Urea Nitrogen 16 mg/dL (7-17); Carbon Dioxide 28 mmol/L (22-30); Chloride 107 mmol/L (98-107); Glucose 95 mg/dL (74-99); Non-African American GFR(CKD) >90 (>60 ml/min/1.73 sqM); Potassium 4.3 mmol/L (3.5-5.1); Sodium 140 mmol/L (137-145); Total Bilirubin 0.3 mg/dL (0.2-1.3); Total Protein 7.1 g/dL (6.3-8.2)
[2023-10-03 20:33] LABS: Amphetamine Screen,Urine Not Detected (NotDetected); Barbiturate Screen,Urine Not Detected (NotDetected); Benzodiazepines Screen,Urine Not Detected (NotDetected); Cocaine Screen,Urine Not Detected (NotDetected); Methadone Screen, Urine Not Detected (NotDetected); Opiate Screen,Urine Not Detected (NotDetected); Oxycodone Screen, Urine Not Detected (NotDetected); Phencyclidine Screen,Urine Not Detected (NotDetected); Tricyclic Antidepressant,Urine Not Detected (NotDetected); Urn Cannabinoid Scrn Not Detected (NotDetected)
[2023-10-03 21:04] LABS: Amorphous Sediment,Urine Rare /hpf; Appearance,Urine Turbid (Clear); Bacteria,Urine Many /hpf; Bilirubin,Urine Negative (Negative); Blood,Urine Negative (Negative); Color,Urine Colorless; Glucose,Urine (UA) Negative (Negative); Ketones,Urine Negative (Negative); Leukocyte Esterase,Urine Small (Negative); Nitrite,Urine Negative (Negative); Protein,Urine Negative (Negative); Specific Gravity,Urine 1.018 (1.001-1.035); Squamous Epithelial Cell,Urine 2 /hpf (0-4); Urobilinogen,Urine <2.0 mg/dL (<2.0); WBC,Urine 10 /hpf (0-5)
[2023-10-04 00:53] VITALS: BP 105/67; PULSE 71; RESP 16; TEMP 97.6
== END 2023-10-04 00:55 ==
LOC: EC 16:08
DX: F32.A Depression, unspecified (principal); F41.9 Anxiety disorder, unspecified; Z79.899 Other long term (current) drug therapy; Z20.822 Contact with and (suspected) exposure to COVID-19
CPT/HCPCS: 36415; 80053; 80306; 81001; 81025; 82075; 85025; 87635; 99285

== ENCOUNTER → 2023-12-06 | Outpatient (CLI) | payer OTHER ==
--- NOTE | 2023-12-06 12:41 | XR ---
EXAMINATION TYPE: XR chest 2V DATE OF EXAM: 12/06/2023 COMPARISON: None HISTORY: 27-year-old female [id number], cough TECHNIQUE: Frontal and lateral views FINDINGS: The cardiomediastinal silhouette, aorta, and pulmonary vasculature are within normal limits. Mild hyp erinflation. Lungs and pleural spaces are clear. IMPRESSION: Mild hyperinflation may relate to depth of inspiration. Consider the possibility of underlying asthma . Otherwise, no acute cardiopulmonary process.
== END | disposition home or self-care (01) ==
LOC: RADXRYALE 11:50
PROVIDERS: ATTEND Physician Assistant
DX: R05.9 Cough, unspecified (principal)
CPT/HCPCS: 71046

== ENCOUNTER 2024-01-08 14:01 | Emergency (ER) | payer OTHER ==
[2024-01-08 14:32] VITALS: BP 129/86; PULSE 63; RESP 20; TEMP 97.9
--- NOTE | 2024-01-08 15:00 | ED ---
General Adult HPI - General Chief complaint: Recheck/Abnormal Lab/Rx Stated complaint: Syncope Time Seen by Provider: 01/08/24 14:58 Source: patient, RN notes reviewed Mode of arrival: ambulatory Limitations: no limitations - History of Present Illness Initial comments: Quick Note: This is a 28-year-old female who presents to the emergency department for left-sided numbness and weakness. States that for the last 4 days she has had numbness in her left arm going up to her neck and today felt like she was going to pass out. She initially went to urgent care and was instructed to come to the emergency department to rule out a stroke. Patient denies any history of strokes. - Related Data Home Medications Medication Instructions Recorded Confirmed Celecoxib [CeleBREX] 200 mg PO BID PRN 10/03/23 10/03/23 Desvenlafaxine Succinate [Pristiq 100 mg PO HS 10/03/23 10/03/23 ER] clonazePAM [Klonopin] 0.5 mg PO DAILY PRN 10/03/23 10/03/23 Allergies Allergy/AdvReac Type Severity Reaction Status Date / Time No Known Allergies Allergy Verified 01/08/24 14:32 Review of Systems ROS Statement: Those systems with pertinent positive or pertinent negative responses have been documented in the HPI. ROS Other: All systems not noted in ROS Statement are negative. Past Medical History Past Medical History: No Reported History Additional Past Medical History / Comment(s): Palpitations with negative evaluation. Previous term vaginal delivery, scoliosis History of Any Multi-Drug Resistant Organisms: None Reported Past Surgical History: No Surgical Hx Reported Past Anesthesia/Blood Transfusion Reactions: No Reported Reaction Past Psychological History: Anxiety, Depression Smoking Status: Never smoker Past Alcohol Use History: Occasional Past Drug Use History: None Reported - Past Family History Mother Family Medical History: No Reported History General Exam - General Exam Comments Initial Comments: Visual Physical Exam Vital signs reviewed General: Well-appearing, nontoxic, no acute distress. Head: Normocephalic, atraumatic Eyes: PERRLA, EOMI ENT: Airway patent Chest: Nonlabored breathing Skin: No visual rash, normal skin tone Neuro: Alert and oriented 3 Musculoskeletal: No gross abnormalities Limitations: no limitations Course Vital Signs 01/08/24 14:30 Temperature 97.9 F Pulse Rate 63 Respiratory 20 Rate Blood Pressure 129/86 O2 Sat by Pulse 100 Oximetry Medical Decision Making - Medical Decision Making I performed the QuickNote portion of this chart. Signed Smita Gómez PA-C. Patient left AMA from the waiting room prior to full evaluation as well as completion and review of ordered testing. Disposition Clinical Impression: Weakness, Dizziness Disposition: LEFT AGAINST MEDICAL ADVICE Referrals: Trent Gonzalez DO [Primary Care Provider] - 1-2 days
== END 2024-01-08 15:48 | disposition left against medical advice (07) ==
LOC: EC 14:01
DX: R42 Dizziness and giddiness (principal); R53.1 Weakness; Z53.29 Procedure and treatment not carried out because of patient's decision for other reasons
CPT/HCPCS: 93005; 99284

== ENCOUNTER 2025-01-14 00:10 | Emergency (ER) | payer OTHER ==
--- NOTE | 2025-01-14 00:41 | ED ---
Nausea/Vomiting/Diarrhea HPI - General Chief complaint: Nausea/Vomiting/Diarrhea Stated complaint: Dehydration Time Seen by Provider: 01/14/25 00:26 Source: patient, RN notes reviewed Mode of arrival: ambulatory Limitations: no limitations - History of Present Illness Initial comments: This is a 29-year-old female who presents to the emergency department for nausea, vomiting, headaches, and body aches. States that it has been going on for the last 2 to 3 days. 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 She has generalized abdominal cramping from all of the vomiting but no localized pain. Denies any diarrhea or constipation. She does have some coughing, congestion, and nasal d rainage as well. Denies any sick contacts. MD complaint: nausea, vomiting - Related Data Home Medications Medication Instructions Recorded Confirmed Celecoxib [CeleBREX] 200 mg PO BID PRN 10/03/23 10/03/23 Desvenlafaxine Succinate [Pristiq 100 mg PO HS 10/03/23 10/03/23 ER] clonazePAM [Klonopin] 0.5 mg PO DAILY PRN 10/03/23 10/03/23 Previous Rx's Medication Instructions Recorded Amoxic-Pot Clav 875-125Mg 1 tab PO BID 7 Days #14 tab 01/14/25 [Augmentin 875-125] Ibuprofen [Motrin] 800 mg PO Q8H PRN #30 tab 01/14/25 Ondansetron Odt [Zofran Odt] 4 mg PO Q8HR PRN #30 tab 01/14/25 Prochlorperazine [Compazine] 10 mg PO Q6H PRN #30 tab 01/14/25 Allergies Allergy/AdvReac Type Severity Reaction Status Date / Time No Known Allergies Allergy Verified 01/08/24 14:32 Review of Systems ROS Statement: Those systems with pertinent positive or pertinent negative responses have been documented in the HPI. ROS Other: All systems not noted in ROS Statement are negative. Past Medical History Past Medical History: No Reported History Additional Past Medical History / Comment(s): Palpitations with negative evaluation. Previous term vaginal delivery, scoliosis History of Any Multi-Drug Resistant Organisms: None Reported Past Surgical History: No Surgical Hx Reported Past Anesthesia/Blood Transfusion Reactions: No Reported Reaction Past Psychological History: Anxiety, Depression Smoking Status: Never smoker Past Alcohol Use History: Occasional Past Drug Use History: None Reported - Past Family History Mother Family Medical History: No Reported History General Exam Limitations: no limitations General appearance: alert, in no apparent distress Head exam: Present: atraumatic, normocephalic, normal inspection Respiratory exam: Present: normal lung sounds bilaterally. Absent: respiratory distress, wheezes, rales, rhonchi, stridor Cardiovascular Exam: Present: regular rate, normal rhythm GI/Abdominal exam: Present: soft. Absent: distended, tenderness Neurological exam: Present: alert, oriented X3, CN II-XII intact Psychiatric exam: Present: normal affect, normal mood Skin exam: Present: warm, dry, intact, normal color. Absent: rash Course Vital Signs 01/14/25 01/14/25 01/14/25 00:22 02:35 03:19 Temperature 100.5 F H 98.6 F 98.7 F Pulse Rate 116 H 79 71 Respiratory 18 19 19 Rate Blood Pressure 126/74 111/69 113/72 O2 Sat by Pulse 98 96 96 Oximetry Medical Decision Making - Medical Decision Making This is a 29 year old female who presents to the emergency department for nausea and vomiting. Was pt. sent in by a medical professional or institution? @ -No Did you speak to anyone other than the patient for history? @ -No Did you review nursing and triage notes? @ -Yes, and I agree, it is accurate with regards to the patient's symptoms. Were old charts reviewed? @ -No Differential Diagnosis? @ -Differential Nausea and Vomiting: Gastroenteritis, cholecystitis, appendicitis, pancreatitis, migraine, benign positional vertigo, food borne illness, pyelonephritis, irritable bowel syndrome, influenza, Covid, GERD, incarcerated hernia, intestinal obstruction, this is not meant to be an all-inclusive list. EKG interpreted by me (3pts min.)? @ -Not obtained X-rays interpreted by me (1pt min.)? @ -Chest x-ray obtained. My interpretation identifies a left lower lobe infiltrate. CT interpreted by me (1pt min.)? @ -CT scan of the abdomen and pelvis obtained. My interpretation identifies no bowel wall thickening or free air. U/S interpreted by me (1pt. min.)? @ -Not obtained What testing was considered but not performed? (CT, X-rays, U/S, labs)? Why? @ -None What meds were considered but not given? Why? @ -None Did you discuss the management of the patient with other professionals? @ -No Did you reconcile home meds? @ -No Was smoking cessation discussed for >3mins.? @ -No Was critical care preformed (if so, how long)? @ -No Were there social determinants of health that impacted care today? How? (Homelessness, low income, unemployed, alcoholism, drug addiction, transportation, low edu. Level, literacy, decrease access to med. care, snf, rehab)? @ -No Was there de-escalation of care discussed even if they declined? (Discuss DNR or withdrawal of care, Hospice)? @ -No What co-morbidities impacted this encounter? (DM, HTN, Smoking, COPD, CAD, Cancer, CVA, Hep., AIDS, mental health diagnosis, sleep apnea, morbid obesity)? @ -None Was patient admitted / discharged? @ -Discharged. Lab work demonstrates leukocytosis with a white blood cell count of 16.29 and is otherwise unremarkable. COVID, influenza, and RSV testing negative. Chest x-ray demonstrates a left lower lobe pneumonia. CT scan of the abdomen and pelvis redemonstrates the left lower lobe pneumonia without other acute process. She does incidentally have a left-sided ovarian cyst. However, she is not exhibiting any discomfort over this region. Symptoms were treated in the emergency department. Initial dose of Augmentin provided with dosing instructions reviewed. Prescription for Augmentin, ibuprofen, Zofran, a nd Compazine provided with dosing instructions reviewed. Strict return parameters discussed. Patient discharged home in stable condition. Case discussed with ED attending Dr. Yost. Return precautions reviewed in depth, the patient is instructed to return to the emergency department with any new, worsening, or concerning symptoms. Patient verbalized understanding. Undiagnosed new problem with uncertain prognosis? @ -None Drug Therapy requiring intensive monitoring for toxicity (Heparin, Nitro, Insulin, Cardizem)? @ -None Were any procedures done? @ -None Diagnosis/symptom? @ -Pneumonia, nausea and vomiting Acute, or Chronic, or Acute on Chronic? @ -Acute Uncomplicated (without systemic symptoms) or Complicated (systemic symptoms)? @ -Uncomplicated Side effects of treatment? @ -None Exacerbation, Progression, or Severe Exacerbation] @ -Not applicable Poses a threat to life or bodily function? @ -No - Lab Data Result diagrams: 01/14/25 00:46 01/14/25 00:46 Lab Results 01/14/25 01/14/25 01/14/25 Range/Units 00:46 00:46 00:46 WBC 16.29 H (4.50-10.00) 10*3/uL RBC 4.33 (4.10-5.20) 10*6/uL Hgb 11.6 L (12.0-15.0) g/dL Hct 35.1 L (37.2-46.3) % MCV 81.1 (80.0-97.0) fL MCH 26.8 L (27.0-32.0) pg MCHC 33.0 (32.0-37.0) g/dL Plt Count 187 (140-440) 10*3/uL MPV 10.6 (9.5-12.2) fL Immature Gran % (Auto) 0.4 % Neutrophils % 84.6 % Lymphocytes % 7.0 % Monocytes % 7.7 % Eosinophils % 0.1 % Basophils % 0.2 % Immature Gran # 0.07 H (0.00-0.04) 10*3/uL Neutrophils # 13.79 H (1.80-7.70) 10*3/uL Lymphocytes # 1.14 (0.90-5.00) 10*3/uL Monocytes # 1.25 H (0.20-1.00) 10*3/uL Eosinophils # 0.01 L (0.04-0.35) 10*3/uL Basophils # 0.03 (0.00-0.10) 10*3/uL Sodium 135 L (137-145) mmol/L Potassium 4.2 (3.5-5.1) mmol/L Chloride 103 (98-107) mmol/L Carbon Dioxide 22 (22-30) mmol/L Anion Gap 10 mmol/L BUN 14 (7-17) mg/dL Creatinine 0.65 (0.52-1.04) mg/dL Est GFR (CKD-EPI)AfAm >90 (>60 ml/min/1.73 sqM) Est GFR (CKD-EPI)NonAf >90 (>60 ml/min/1.73 sqM) Glucose 102 H (74-99) mg/dL Calcium 9.9 (8.4-10.2) mg/dL Total Bilirubin 0.3 (0.2-1.3) mg/dL AST 26 (14-36) U/L ALT 18 (4-34) U/L Alkaline Phosphatase 94 (38-126) U/L Total Protein 7.1 (6.3-8.2) g/dL Albumin 4.5 (3.5-5.0) g/dL Lipase 28 (23-300) U/L HCG, Qual Not Detected Influenza Type A (PCR) Not Detected (Not Detectd) Influenza Type B (PCR) Not Detected (Not Detectd) RSV (PCR) Not Detected (Not Detectd) SARS-CoV-2 (PCR) Not Detected (Not Detectd) - Radiology Data Radiology results: report reviewed, image reviewed Disposition Clinical Impression: Pneumonia, Nausea and vomiting Disposition: HOME SELF-CARE Instructions (If sedation given, give patient instructions): Acute Nausea and Vomiting (ED), Pneumonia (ED) Additional Instructions: Return to the emergency department with any new, worsening, or concerning symptoms. Take the antibiotic as prescribed for 7 days. Alternate with ibuprofen and Tylenol as needed for any additional fevers or discomfort. You can take the Zofran up to every 8 hours as needed for nausea and vomiting and the Compazine up to every 6 hours. Slowly advance your diet as tolerated and remain well-hydrated. Prescriptions: Amoxic-Pot Clav 875-125Mg [Augmentin 875-125] 1 tab PO BID 7 Days #14 tab Prochlorperazine [Compazine] 10 mg PO Q6H PRN #30 tab PRN Reason: Nausea And Vomiting Ibuprofen [Motrin] 800 mg PO Q8H PRN #30 tab PRN Reason: Pain Ondansetron Odt [Zofran Odt] 4 mg PO Q8HR PRN #30 tab PRN Reason: Nausea And Vomiting Is patient prescribed a controlled substance at d/c from ED?: No Referrals: None,Stated [Primary Care Provider] - 1-2 days Forms: Area PCPs Time of Disposition: 03:23
[2025-01-14] MEDS: ONDANSETRON 4 MG/2 ML VIAL IVP STA (00:47)
[2025-01-14] MEDS: KETOROLAC 15 MG/ML 1 ML VIAL IVP STA (00:47)
[2025-01-14] MEDS: SODIUM CHLORIDE 0.9% 1,000 ML IV ONE (00:48)
[2025-01-14] MEDS: ACETAMINOPHEN IV (For NPO) 1,000 MG in EMPTY BAG 1 BAG IVPB STA (00:58)
[2025-01-14] MEDS: DEXAMETHASONE SOD PHOSPHATE 10 MG/ML 1 ML VIAL IVP STA (00:59)
[2025-01-14 01:12] LABS: Basophils # (A) 0.03 10*3/uL (0.00-0.10); Basophils % (A) 0.2 %; Eosinophils # (A) 0.01 10*3/uL (0.04-0.35); Eosinophils % (A) 0.1 %; HCT 35.1 % (37.2-46.3); HGB 11.6 g/dL (12.0-15.0); Lymphocytes # (A) 1.14 10*3/uL (0.90-5.00); MCH 26.8 pg (27.0-32.0); MCV 81.1 fL (80.0-97.0); Mean Platelet Volume 10.6 fL (9.5-12.2); Monocytes # (A) 1.25 10*3/uL (0.20-1.00); Monocytes % (A) 7.7 %; Neutrophils # (A) 13.79 10*3/uL (1.80-7.70); Neutrophils % (A) 84.6 %; Platelet Count 187 10*3/uL (140-440); RBC 4.33 10*6/uL (4.10-5.20); RDW 15.7 % (11.5-14.5); WBC 16.29 10*3/uL (4.50-10.00)
[2025-01-14 01:25] LABS: ALT 18 U/L (4-34); AST 26 U/L (14-36); African American GFR (CKD) >90 (>60 ml/min/1.73 sqM); Albumin 4.5 g/dL (3.5-5.0); Alkaline Phosphatase 94 U/L (38-126); Anion Gap 10 mmol/L; Blood Urea Nitrogen 14 mg/dL (7-17); Calcium 9.9 mg/dL (8.4-10.2); Carbon Dioxide 22 mmol/L (22-30); Chloride 103 mmol/L (98-107); Glucose 102 mg/dL (74-99); Lipase 28 U/L (23-300); Non-African American GFR(CKD) >90 (>60 ml/min/1.73 sqM); Potassium 4.2 mmol/L (3.5-5.1); Sodium 135 mmol/L (137-145); Total Bilirubin 0.3 mg/dL (0.2-1.3); Total Protein 7.1 g/dL (6.3-8.2)
[2025-01-14 01:31] LABS: HCG,Qualitative Serum Not Detected
[2025-01-14 01:49] LABS: Influenza A Not Detected (Not Detectd); Influenza B Not Detected (Not Detectd); RSV Not Detected (Not Detectd)
[2025-01-14 02:43] VITALS: RESP 19
--- NOTE | 2025-01-14 02:58 | XR ---
EXAM: XR Chest, 2 Views CLINICAL HISTORY: ITS.REASON XR Reason: Cough, fever TECHNIQUE: Frontal and lateral views of the chest. COMPARISON: No relevant prior studies available. FINDINGS: Lungs: Left lower lobe pneumonia. Pleural space: Unremarkable. No pneumothorax. Heart: Unremarkable. No cardiomegaly. Mediastinum: Unremarkable. Bones/joints: Unremarkable. IMPRESSION: Left lower lobe pneumonia.
[2025-01-14] MEDS: AZITHROMYCIN 500 MG TAB PO STA (03:11)
[2025-01-14] MEDS: PROCHLORPERAZINE INJ 10 MG/2 ML VIAL IVP STA (03:11)
--- NOTE | 2025-01-14 03:11 | CT ---
EXAM: CT Abdomen and Pelvis With Intravenous Contrast CLINICAL HISTORY: ITS.REASON CT Reason: Abdominal pain, fevers TECHNIQUE: Axial computed tomography images of the abdomen and pelvis with intravenous contrast. CTDI is 24.4 mGy and DLP is 1265.6 mGy-cm. This CT exam was performed using one or more of the following dose reduction techniques: automated exposure control, adjustment of the mA and/or kV according to patient size, and/or use of iterative reconstruction technique. COMPARISON: No relevant prior studies available. FINDINGS: Lung bases: Left lower lobe pneumonia. ABDOMEN: Liver: Unremarkable. No mass. Gallbladder and bile ducts: Unremarkable. No calcified stones. No ductal dilation. Pancreas: Unremarkable. No mass. No ductal dilation. Spleen: Unremarkable. No splenomegaly. Adrenals: Unremarkable. No mass. Kidneys and ureters: Unremarkable. No solid mass. No hydronephrosis. Stomach and bowel: Unremarkable. No obstruction. No mucosal thickening. PELVIS: Appendix: No findings to suggest acute appendicitis. Bladder: Unremarkable. No mass. Reproductive: Left ovarian cyst measures 2.4 x 3.6 cm. ABDOMEN and PELVIS: Intraperitoneal space: Unremarkable. No free air. No significant fluid collection. Bones/joints: No acute fracture. No dislocation. Soft tissues: Unremarkable. Vasculature: Unremarkable. No abdominal aortic aneurysm. Lymph nodes: Unremarkable. No enlarged lymph nodes. IMPRESSION: 1. Left lower lobe pneumonia. 2. Left ovarian cyst measures 2.4 x 3.6 cm.
[2025-01-14 03:22] VITALS: BP 113/72; PULSE 71; TEMP 98.7
[2025-01-14] MEDS: ONDANSETRON 4 MG ODT STARTER PACK 2 TAB BTL PO STA (03:26)
[2025-01-14] MEDS: AMOXIC-POT CLAV 875-125MG 1 EACH TAB PO STA (03:26)
== END 2025-01-14 03:30 | disposition home or self-care (01) ==
LOC: EC 00:10
DX: J18.9 Pneumonia, unspecified organism (principal); R11.2 Nausea with vomiting, unspecified
CPT/HCPCS: 36415; 80053; 83690; 85025; 84703; 87636; 71046; 74177; 99285; 96374; 96375; 96361; J0780; J1100; J2405; J0131; J1885; S0119; Q9967

== ENCOUNTER 2025-01-16 13:59 | Emergency (ER) | payer OTHER ==
--- NOTE | 2025-01-16 14:38 | ED ---
General Adult HPI - General Source: patient, RN notes reviewed Mode of arrival: ambulatory Limitations: no limitations <La Meek - Last Filed: 01/16/25 14:37> - General Source: old records reviewed <Sabas Garcia - Last Filed: 01/16/25 17:41> - General Stated complaint: fatigued, eyes are blurry Time Seen by Provider: 01/16/25 14:37 - History of Present Illness Initial comments: Quick note: 29-year-old female presented the ER for evaluation of fatigue. Zee alexander was seen here on Wednesday night and diagnosed with a pneumonia. Patient was started on amoxicillin. Patient states since then she has continued cough, congestion and states she "cannot focus". Denies fevers. Patient states this is limiting her ability to go to work. (La Meek) 29-year-old female presents with complaints of fatigue. Of note patient was here Wednesday night and diagnosed with pneumonia, started on amoxicillin at that time. Reports since starting the antibiotic her cough and congestion has improved but she feels significantly fatigued and feels this also is affecting her vision, more so to where she feels like she cannot keep her eyes open not necessarily that her vision has gotten worse. 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 (Sabas Garcia) - Related Data Home Medications Medication Instructions Recorded Confirmed Celecoxib [CeleBREX] 200 mg PO BID PRN 10/03/23 10/03/23 Desvenlafaxine Succinate [Pristiq 100 mg PO HS 10/03/23 10/03/23 ER] clonazePAM [Klonopin] 0.5 mg PO DAILY PRN 10/03/23 10/03/23 Previous Rx's Medication Instructions Recorded Amoxic-Pot Clav 875-125Mg 1 tab PO BID 7 Days #14 tab 01/14/25 [Augmentin 875-125] Ibuprofen [Motrin] 800 mg PO Q8H PRN #30 tab 01/14/25 Ondansetron Odt [Zofran Odt] 4 mg PO Q8HR PRN #30 tab 01/14/25 Prochlorperazine [Compazine] 10 mg PO Q6H PRN #30 tab 01/14/25 predniSONE See Taper PO DIRECTED 5 Days 01/16/25 #21 tab Allergies Allergy/AdvReac Type Severity Reaction Status Date / Time No Known Allergies Allergy Verified 01/16/25 14:56 Review of Systems ROS Other: All systems not noted in ROS Statement are negative. <La Meek - Last Filed: 01/16/25 14:37> ROS Other: All systems not noted in ROS Statement are negative. <Sabas Garcia - Last Filed: 01/16/25 17:41> ROS Statement: Those systems with pertinent positive or pertinent negative responses have been documented in the HPI. Past Medical History Past Medical History: No Reported History Additional Past Medical History / Comment(s): Palpitations with negative evaluation. Previous term vaginal delivery, scoliosis History of Any Multi-Drug Resistant Organisms: None Reported Past Surgical History: No Surgical Hx Reported Past Anesthesia/Blood Transfusion Reactions: No Reported Reaction Past Psychological History: Anxiety, Depression Smoking Status: Never smoker Past Alcohol Use History: Occasional Past Drug Use History: None Reported - Past Family History Mother Family Medical History: No Reported History <La Meek - Last Filed: 01/16/25 14:37> General Exam <La Meek - Last Filed: 01/16/25 14:37> <Sabas Garcia - Last Filed: 01/16/25 17:41> - General Exam Comments Initial Comments: Visual Physical Exam Vital signs reviewed General: Well-appearing, nontoxic, no acute distress. Head: Normocephalic, atraumatic Eyes: PERRLA, EOMI ENT: Airway patent Chest: Nonlabored breathing Skin: No visual rash, normal skin tone Neuro: Alert and oriented 3 Musculoskeletal: No gross abnormalities (La Meek) GENERAL: In no apparent distress at the time of examination. Pleasant and cooperative. HEENT: Head is atraumatic, normocephalic. Pupils are equal, round, and reactive to light. Sclerae anicteric. Conjunctivae are clear. Mucus membranes of the mouth are moist. Neck is supple. RESPIRATORY: Clear to auscultation. No wheezes, rales, or rhonchi. No use of accessory muscles. Patient maintaining oxygen saturation greater than 92%. No chest wall tenderness is noted on palpation or with deep breathing. CARDIOVASCULAR: Regular rate and rhythm. S1 and S2 noted. No systolic or diastolic murmur auscultated. No JVD noted. No S3 or S4 noted. INTEGUMENTARY: No cyanosis. No jaundice. No rashes noted. No cellulitis noted. EXTREMITIES: 2+ peripheral pulses. No evidence of peripheral edema. No calf tenderness noted. PSYCHIATRIC: Awake, alert, and oriented X 3. Appropriate affect. Intact judgement and insight. (Sabas Garcia) Course Vital Signs 01/16/25 14:57 Temperature 97.9 F Pulse Rate 81 Respiratory 18 Rate Blood Pressure 121/73 O2 Sat by Pulse 96 Oximetry Medical Decision Making <La Meek - Last Filed: 01/16/25 14:37> <Sabas Garcia - Last Filed: 01/16/25 17:41> - Medical Decision Making I performed the quick note portion of this chart. Electronically signed by La Meek PA-C (La Meek) Was pt. sent in by a medical professional or institution ([facility], [employer]PERINTENDENT, urgent care, hospital, or prison...) When possible be specific @ -No Did you speak to anyone other than the patient for history (EMS, parent, family, police, friend...)? What history was obtained from this source @ -No Did you review nursing and triage notes (agree or disagree)? Why? @ -I reviewed and agree with nursing and triage notes Were old charts reviewed (outside hosp., previous admission, EMS record, old EKG, old radiological studies, urgent care reports/EKG's, prison records)? Report findings @ -No old charts were reviewed Differential Diagnosis? @ -Differential Weakness: Hypoglycemia, shock, sepsis, hyponatremia, anemia, infection, [place], ETOH, adverse medicine reaction, overdose, stroke, this is not meant to be an all-inclusive list. EKG interpreted by me (3pts min.). @ -As above X-rays interpreted by me (1pt min.). @ -No acute cardiopulmonary process appreciated CT interpreted by me (1pt min.). @ -None done U/S interpreted by me (1pt. min.). @ -None done What testing was considered but not performed or refused? (CT, X-rays, U/S, labs)? Why? @ -None What meds were considered but not given or refused? Why? @ -None Did you discuss the management of the patient with other professionals (professionals i.e. , PA, POWER SUPERINTENDENT, lab, RT, psych nurse, family welfare social work professor, supervisor ship maintenance services, teacher, chief technology officer, shelter case manager)? Give summary @ -No Was smoking cessation discussed for >3mins.? @ -No Was critical care preformed (if so, how long)? @ -No Were there social determinants of health that impacted care today? How? (Homelessness, low income, unemployed, alcoholism, drug addiction, transportation, low edu. Level, literacy, decrease access to med. care, skilled nursing, rehab)? @ -No Was there de-escalation of care discussed even if they declined (Discuss DNR or withdrawal of care, Hospice)? DNR status @ -No What co-morbidities impacted this encounter? (DM, HTN, Smoking, COPD, CAD, Cancer, CVA, ARF, Chemo, Hep., AIDS, mental health diagnosis, sleep apnea, morbid obesity)? @ -None Was patient admitted / discharged? Hospital course, mention meds given and route, prescriptions, significant lab abnormalities, going to OR and other pertinent info. @ -Discharge, this is a 29-year-old female presenting with complaints of fatigue. States has been feeling this way since last Wednesday when she was here at our facility and diagnosed with pneumonia and started on amoxicillin. Her symptoms have been getting better since starting antibiotics including improving cough and congestion but she still feels fatigue to where she feels it is hard to keep her eyes open and this is affecting her vision. Patient underwent second chest x-ray here, showed no acute cardiopulmonary process, appears slightly better than previous. Patient was given a short tapering steroid course and advised to follow-up with her PCP in 1 to 2 days. Patient was discharged at this time Undiagnosed new problem with uncertain prognosis? @ -No Drug Therapy requiring intensive monitoring for toxicity (Heparin, Nitro, Insulin, Cardizem)? @ -No Were any procedures done? @ -No Diagnosis/symptom? @ -Fatigue secondary to pneumonia Acute, or Chronic, or Acute on Chronic? @ -Acute Uncomplicated (without systemic symptoms) or Complicated (systemic symptoms)? @ -Default Side effects of treatment? @ -No Exacerbation, Progression, or Severe Exacerbation? @ -No Poses a threat to life or bodily function? How? (Chest pain, [place], [place], pneumonia, PE, COPD, DKA, ARF, appy, cholecystitis, CVA, Diverticulitis, Homicidal, Suicidal, threat to staff... and all critical care pts) @ -No (Sabas Garcia) - Lab Data Lab Results 01/16/25 01/16/25 Range/Units 16:44 16:44 Urine RBC 1 (0-5) /hpf Urine WBC <1 (0-5) /hpf Ur Squamous Epith Cells 1 (0-4) /hpf Urine Bacteria Rare H (None) /hpf Urine Mucus Rare H (None) /hpf Urine HCG, Qual Not Detected (Not Detectd) Disposition <La Meek - Last Filed: 01/16/25 14:37> Is patient prescribed a controlled substance at d/c from ED?: No <Sabas Garcia - Last Filed: 01/16/25 17:41> Clinical Impression: Pneumonia, Fatigue Disposition: HOME SELF-CARE Condition: Fair Instructions (If sedation given, give patient instructions): Fatigue (ED) Prescriptions: predniSONE See Taper PO DIRECTED 5 Days #21 tab Referrals: None,Stated [Primary Care Provider] - 1-2 days
[2025-01-16 15:00] VITALS: RESP 18; TEMP 97.9
--- NOTE | 2025-01-16 15:28 | XR ---
EXAMINATION TYPE: XR chest 2V DATE OF EXAM: 01/16/2025 3:13 PM COMPARISON: 01/14/2025 CLINICAL INDICATION: Female, 29 years old with history of cough congestion, TECHNIQUE: XR chest 2V view(s) obtained. FINDINGS: The heart size is normal. The pulmonary vasculature is normal. There is some minimal infiltrate at the left costophrenic angle likely atelectasis. Lungs otherwise a ppear clear. IMPRESSION: 1. Minimal left costophrenic angle atelectasis. [facility], , 01/16/2025 3:26 PM
[2025-01-16 17:01] LABS: Bacteria,Urine Rare /hpf; Mucus,Urine Rare /hpf; Squamous Epithelial Cell,Urine 1 /hpf (0-4); WBC,Urine <1 /hpf (0-5)
[2025-01-16 17:38] LABS: Amorphous Sediment,Urine Rare /hpf; Appearance,Urine Cloudy (Clear); Bilirubin,Urine Negative (Negative); Blood,Urine Negative (Negative); Color,Urine Yellow; Glucose,Urine (UA) Negative (Negative); Ketones,Urine Negative (Negative); Leukocyte Esterase,Urine Negative (Negative); Nitrite,Urine Negative (Negative); PH, Urine 7.5 (5.0-8.0); Protein,Urine Negative (Negative); Specific Gravity,Urine 1.021 (1.001-1.035); Urobilinogen,Urine <2.0 mg/dL (<2.0)
[2025-01-16 17:46] LABS: RBC,Urine <1 /hpf (0-5)
[2025-01-16 18:29] VITALS: BP 120/78; PULSE 80
== END 2025-01-16 18:29 | disposition home or self-care (01) ==
LOC: EC 13:59
DX: J18.9 Pneumonia, unspecified organism (principal); R53.83 Other fatigue
CPT/HCPCS: 71046; 81001; 81025; 99284